=== PATIENT | female | born 1965 | race American Indian/Alaskan Native ===

== ENCOUNTER 2017-01-04 08:51 | Inpatient (IN) | payer MEDICAID, MEDICARE ==
[2017-01-04 08:52] VITALS: BMI 49.1
[2017-01-04 11:21] LABS: SQUAMOUS EPITHIAL 5 /hpf (0-5); URINE BACTERIA RARE (<OCC); URINE BILIRUBIN NEGATIVE (NEGATIVE); URINE BLOOD NEGATIVE (NEGATIVE); URINE CLARITY Hazy (Clear); URINE COLOR Yellow (YELLOW); URINE GLUCOSE (UA) NORMAL (Normal); URINE LEUKOCYTE ESTERASE NEG Leu/uL (Negative); URINE NITRATE NEGATIVE (NEGATIVE); URINE PROTEIN 1+ mg/dL (NEGATIVE); URINE UROBILINOGEN NORMAL mg/dL (0.2-1.0)
[2017-01-04 11:36] LABS: BASO # 0.1 K/uL (0.0-0.2); EOS # 0.1 K/uL (0.0-0.7); EOS % 2.3 % (0.0-4.0); HEMOGLOBIN 12.1 g/dL (11.0-16.0); LYMPH # 1.4 K/uL (1.0-4.3); LYMPH % 23.8 % (20.0-40.0); MEAN CORPUSCULAR HEMOGLOBIN 28.3 pg (27.0-31.0); MEAN CORPUSCULAR HGB CONC 32.9 g/dL (33.0-37.0); MEAN PLATELET VOLUME 10.3 fL (7.2-11.7); MONO # 0.7 K/uL (0.0-0.8); MONO % 11.2 % (0.0-10.0); NEUT # 3.6 K/uL (1.8-7.0); NEUT % 61.7 % (50.0-75.0); RBC 4.29 Mil/uL (3.80-5.20); RED CELL DISTRIBUTION WIDTH 14.7 % (11.5-14.5); WHITE BLOOD COUNT 5.9 K/uL (4.8-10.8)
[2017-01-04] MEDS ORDERED: Morphine 4 MG/ML VIAL ONE ×2 (11:38→13:48)
[2017-01-04 11:47] LABS: PROTHROMBIN TIME 11.8 SECONDS (9.7-12.2)
[2017-01-04 11:54] LABS: ALBUMIN 4.1 g/dL (3.5-5.0)
[2017-01-04 11:56] LABS: GFR AFRICAN-AMERICAN > 60; GFR NON-AFRICAN AMERICAN 58
[2017-01-04 11:57] LABS: ALB/GLOB RATIO 1.2 (1.0-2.1); ALT/SGPT 74 U/L (9-52); AST/SGOT 45 U/L (14-36); BLOOD UREA NITROGEN 8 mg/dL (7-17); LIPASE 30 U/L (23-300)
[2017-01-04 12:06] LABS: CK-MB 0.85 ng/mL (0.0-3.38)
[2017-01-04 12:07] LABS: B-TYPE NATRIURETIC PEPTIDE 140 pg/mL (0-900)
--- NOTE | 2017-01-04 13:19 | C.PDOC ---
Time Seen by Provider: 01/04/17 09:48 Chief Complaint (Nursing): Lower Extremity Problem/Injury Past Medical History Vital Signs: Last Vital Signs Temp 98.0 F 01/04/17 08:54 Pulse 90 01/04/17 08:54 Resp 14 01/04/17 08:54 BP 148/102 H 01/04/17 08:54 Pulse Ox 98 01/04/17 08:54 - Medical History PMH: Arthritis (KNEES), Deep Vein Thrombosis, HTN Denies: Colonic Polyps, Depression, Fractures, Chronic Kidney Disease Surgical History: Endoscopy (20 YEARS AGO), Tonsillectomy - [facility] Procedures INFLUENZA VACCINATION (03/24/12) INJECT/INFUSE NEC (10/16/14) VACCINATION NEC (03/24/12) - Social History Hx Tobacco Use: No Hx Alcohol Use: No Hx Substance Use: No ED Course And Treatment - Laboratory Results Result Diagrams: 01/04/17 11:32 01/04/17 11:32 ECG: Interpreted By Me (Dr Valencia and I), Viewed By Me ECG Rhythm: Sinus Rhythm (85) O2 Sat by Pulse Oximetry: 98 Disposition - Disposition Forms: [facility] (Khmer)
--- NOTE | 2017-01-04 13:24 | C.PDOC ---
History Of Present Illness 51 y/o female, whose PMHx includes gout, presents to the ED for evaluation of left foot pain and swelling. States that her symptoms feel similar to previous time when she had gout. PT had gastric sleeve 8 days ago, and was diagnosed with DVT the following day. Pt is taking Lovenox now. Pt also notes that she has been experiencing "fluttering" in her chest and occassional SOB. Notes that it started yesterday, lasted a few seconds. Pt notes that she thought it was gas, spoke to her gastric surgeon, who told her that she she come to ER. PT also notes that she has some anxiety. h/o Lupus with chest pain, notes this feels different. On liquid diet. Otherwise, denies any extremity weakness/numbness, headache, dizziness, no abdominal pain, n/v or any other associated symptoms at this time. Time Seen by Provider: 01/04/17 09:48 Chief Complaint (Nursing): Lower Extremity Problem/Injury History Per: Patient History/Exam Limitations: no limitations Onset/Duration Of Symptoms: Days Current Symptoms Are (Timing): Still Present Recent travel outside of the [place]: No Additional History Per: Patient Past Medical History Reviewed: Historical Data, Nursing Documentation, Vital Signs Vital Signs: Last Vital Signs Temp 98.1 F 01/05/17 08:20 Pulse 90 01/05/17 08:20 Resp 20 01/05/17 08:20 BP 111/72 01/05/17 10:00 Pulse Ox 95 01/05/17 08:20 - Medical History PMH: Arthritis (KNEES), Deep Vein Thrombosis, HTN Denies: Colonic Polyps, Depression, Fractures, Chronic Kidney Disease Surgical History: Endoscopy (20 YEARS AGO), Tonsillectomy - [facility] Procedures INFLUENZA VACCINATION (03/24/12) INJECT/INFUSE NEC (10/16/14) VACCINATION NEC (03/24/12) Family History: States: Unknown Family Hx - Social History Hx Tobacco Use: No Hx Alcohol Use: No Hx Substance Use: No Review Of Systems Except As Marked, All Systems Reviewed And Found Negative. Constitutional: Negative for: Fever, Chills Cardiovascular: Negative for: Chest Pain, Palpitations Respiratory: Negative for: Cough, Shortness of Breath Gastrointestinal: Negative for: Nausea, Vomiting, Abdominal Pain, Diarrhea, Constipation Musculoskeletal: Positive for: Foot Pain (left) Skin: Positive for: Other (redness and swelling to left foot). Negative for: Lesions Neurological: Negative for: Weakness, Numbness, Headache, Dizziness Physical Exam - Physical Exam Appears: Non-toxic, No Acute Distress Skin: Warm, Dry, Other (erythema to left great toe MTP) Head: Atraumatic, Normacephalic Eye(s): bilateral: Normal Inspection Oral Mucosa: Moist Neck: Normal ROM, Supple Cardiovascular: Rhythm Regular, No Murmur Respiratory: Normal Breath Sounds, No Rales, No Rhonchi, No Wheezing Gastrointestinal/Abdominal: Soft, No Tenderness, No Guarding, No Rebound, Other (5 healed incision to abdomen, no erythema, no discharge, no signs of infection) Back: Normal Inspection Extremity: Normal ROM (FROM of left foot and digits), Tenderness (left great toe MTP ), No Pedal Edema, No Calf Tenderness, Capillary Refill (< 2 sec.), No Deformity, Swelling (left great toe MTP) Pulses: Left Dorsalis Pedis: Normal, Right Dorsalis Pedis: Normal Neurological/Psych: Oriented x3, Normal Speech, Normal Motor, Normal Sensation ED Course And Treatment - Laboratory Results Result Diagrams: 01/05/17 06:36 01/05/17 06:36 ECG: Interpreted By Me (Dr Valencia and I), Viewed By Me ECG Rhythm: Sinus Rhythm (85) O2 Sat by Pulse Oximetry: 98 (RA) Pulse Ox Interpretation: Normal Progress Note: Blood work, urinalysis, EKG, angio chest CT ordered and reviewed. Patient was given Zofran, and Morphine. On re-eval, pt reports feeling better, with improvement of pain. Case discussed with Dr. Pacheco who agrees upon plan and admission. 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 - Scribe Statement The provider has reviewed the documentation as recorded by the Meg Miller All medical record entries made by the Omkaribyaakov were at my direction and personally dictated by me. I have reviewed the chart and agree that the record accurately reflects my personal performance of the history, physical exam, medical decision making, and the department course for this patient. I have also personally directed, reviewed, and agree with the discharge instructions and disposition.
[2017-01-04] MEDS ORDERED: Sodium Chloride 0.9% 1,000 ML ONE (13:48)
[2017-01-04] MEDS ORDERED: Sodium Chloride 0.9% 1,000 ML IV ONE (13:49)
[2017-01-04] MEDS ORDERED: Naproxen 550 mg Tab PO PRN (18:18)
[2017-01-04] MEDS ORDERED: Morphine 4 MG/ML VIAL IV STA (18:33)
[2017-01-04] MEDS ORDERED: Iohexol 350mg/ml 100 ML ONE (20:47)
[2017-01-04 21:11] LABS: CK-MB 0.69 ng/mL (0.0-3.38)
--- NOTE | 2017-01-04 21:51 | CT ---
EXAM: CT Angiography Chest With Intravenous Contrast CLINICAL HISTORY: 51 years old, female; Condition or disease; Lung condition and disease; Pulmonary embolism; Attributes not specified; Patient HX: Gastric sleeve a week ago; Additional info: SOB TECHNIQUE: Axial computed tomographic angiography images of the chest with intravenous contrast using pulmonary embolism protocol. This CT exam was performed using one or more of the following dose reduction techniques: automated exposure control, adjustment of the mA and/or kV according to patient size, and/or use of iterative reconstruction technique. MIP reconstructed images were created and reviewed. Coronal and sagittal reformatted images were created and reviewed. CONTRAST: 100 mL of omnipaque 350 administered intravenously. EXAM DATE/TIME: Exam ordered 01/04/2017 12:02 PM COMPARISON: No relevant prior studies available. FINDINGS: Pulmonary arteries: Unremarkable. No pulmonary embolism. Aorta: No acute findings. No thoracic aortic aneurysm. Lungs: Unremarkable. No mass. No consolidation. Pleural space: Unremarkable. No significant effusion. No pneumothorax. Heart: Unremarkable. No cardiomegaly. No significant pericardial effusion. No evidence of RV dysfunction. Thyroid: A 6 mm nodule is noted in the right lobe of the thyroid. Bones/joints: Degenerative changes are noted of the mid thoracic spine. No acute fracture. No dislocation. Soft tissues: Unremarkable. Lymph nodes: Unremarkable. No enlarged lymph nodes. Stomach and bowel: Surgical changes are noted along the stomach consistent with the history of recent gastric sleeve surgery IMPRESSION: 1. No pulmonary embolism. 2. Postoperative changes related to recent gastric sleeve surgery. 3. 6 mm nodule in the right lobe of the thyroid.
--- NOTE | 2017-01-04 21:53 | CP.PCM.HP ---
<Franky Frausto - Last Filed: 01/04/17 21:43> History of Present Illness - History of Present Illness History of Present Illness: PGY-[address] Lr 51 y/o Female presents to the ED with a CC of L. Foot pain and palpitations. Patient had a Sleeve gastrectomy done last week. 2 days after the procedure she developed a DVT in the L. leg and was started on lovenox. She then started to have L. foot pain that she describes as similar to the pain she has when her gout flares up. Nothing makes the pain better or worse. She describes the pain as tingling and stinging up and down the foot and leg. At its worst, she rates the pain as a 10/10. The pain is constant. This is associated with chills, diaphoresis, SOB during rest and exertion, Palpitations, weakness, dizziness. She denies fever, N/V/cough/hemoptysis, Visual changes, changes in her speech, confusion, RICHARD, abdominal pain. Rash, changes in her urine. She denies sick contacts or recent travel. Present on Admission - Present on Admission Any Indicators Present on Admission: Yes History of DVT/PE: Yes History of Uncontrolled Diabetes: No Urinary Catheter: No Decubitus Ulcer Present: No History Surgical Site Infection Following: Bariatric Surgery (sleeve gastrectomy ) Review of Systems - Constitutional Constitutional: As Per HPI - EENT Eyes: As Per HPI Ears: As Per HPI Nose/Mouth/Throat: As Per HPI - Breasts Breasts: As Per HPI - Cardiovascular Cardiovascular: As Per HPI - Respiratory Respiratory: As Per HPI - Gastrointestinal Gastrointestinal: As Per HPI - Genitourinary Genitourinary: As Per HPI - Reproductive: Female Reproductive:Female: As Per HPI - Menstruation Menstruation: As Per HPI - Musculoskeletal Musculoskeletal: As Per HPI - Integumentary Integumentary: As Per HPI - Neurological Neurological: As Per HPI - Psychiatric Psychiatric: As Per HPI - Endocrine Endocrine: As Per HPI - Hematologic/Lymphatic Hematologic: As Per HPI Past Patient History - Infectious Disease Hx of Infectious Diseases: None - Tetanus Immunizations Tetanus Immunization: Up to Date - Past Medical History & Family History Past Medical History?: Yes - Past Social History Smoking Status: Never Smoked Chewing Tobacco Use: No Cigar Use: No 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 Alcohol: None Drugs: Denies Home Situation {Lives}: With Family - CARDIAC Hx Cardiac Disorders: Yes Hx Heart Attack: No Hx Hypertension: Yes - PULMONARY Hx Respiratory Disorders: Yes Hx Bronchitis: Yes Hx Emphysema: No Hx Lung Cancer: No Hx Pneumonia: No Hx Pulmonary Edema: No Hx Pulmonary Embolism: No Hx Respiratory Tract Infection: Yes (chronic sinusitis) Hx Sleep Apnea: Yes (GAVIN) Other/Comment: SINGULAIR FOR SEASONAL ALLERGIES - NEUROLOGICAL Hx Neurological Disorder: No HX Cerebrovascular Accident: No Hx Syncope: Yes - HEENT Hx HEENT Problems: Yes (dry eye) Hx Sinusitis: Yes - RENAL Hx Chronic Kidney Disease: No - ENDOCRINE/METABOLIC Hx Endocrine Disorders: Yes Hx Diabetes Mellitus Type 1: No Hx Diabetes Mellitus Type 2: No Hx Systemic Lupus Erythematosus: Yes - HEMATOLOGICAL/ONCOLOGICAL Hx Blood Disorders: Yes Hx Blood Transfusions: No Hx Bruising: Yes Hx Cancer: Yes (BONE CHONDROSARCOMA) Hx Chemotherapy: No Other/Comment: s/p stem cell transplant 2005 - INTEGUMENTARY Hx Dermatological Problems: Yes (SLE) Other/Comment: LUPUS FACIAL RASH - MUSCULOSKELETAL/RHEUMATOLOGICAL Hx Musculoskeletal Disorders: Yes Hx Arthritis: Yes (KNEES) Hx Falls: No Hx Fractures: No Hx Gout: Yes (toes) Hx Myasthenia Gravis: No - GASTROINTESTINAL Hx Gastrointestinal Disorders: No - GENITOURINARY/GYNECOLOGICAL Hx Genitourinary Disorders: No - PSYCHIATRIC Hx Psychophysiologic Disorder: No Hx Depression: No Hx Substance Use: No - SURGICAL HISTORY Hx Surgeries: Yes Hx Gastric Bypass Surgery: Yes (sleeve) Hx Musculoskeletal Surgery: Yes (Left lower extremity cancerous bone removal) Hx Tonsillectomy: Yes Other/Comment: Gatric sleeve 12/27/2016 - ANESTHESIA Hx Anesthesia: Yes Hx Anesthesia Reactions: No Hx Malignant Hyperthermia: No Meds Allergies/Adverse Reactions: Allergies Allergy/AdvReac Type Severity Reaction Status Date / Time warfarin Allergy Intermediate URTICARIA Verified 05/03/16 08:04 tape Allergy Mild RASH Uncoded 05/03/16 08:04 ultrasound gel Allergy Mild RASH Uncoded 05/03/16 08:04 Physical Exam - Constitutional Appears: Non-toxic, No Acute Distress - Head Exam Head Exam: ATRAUMATIC, NORMAL INSPECTION, NORMOCEPHALIC - Eye Exam Eye Exam: absent: Conjunctival injection Pupil Exam: NORMAL ACCOMODATION. absent: Fixed, Irregular - ENT Exam ENT Exam: Mucous Membranes Moist, Normal Exam - Respiratory Exam Respiratory Exam: Clear to Auscultation Bilateral. absent: Accessory Muscle Use , Chest Wall Tenderness, Decreased Breath Sounds, Prolonged Expiratory Phase, Rales, Rhonchi, Wheezes, Respiratory Distress, Stridor - Cardiovascular Exam Cardiovascular Exam: REGULAR RHYTHM, RRR. absent: Bradycardia, Tachycardia, Clicks, Diastolic murmur, Gallop, Irregular Rhythm, JVD, Rubs, Systolic Murmur - GI/Abdominal Exam GI & Abdominal Exam: Normal Bowel Sounds, Soft. absent: Bruit, Diminished Bowel Sounds, Distended, Firm, Guarding, Hernia, Hyperactive Bowel Sounds, Hypoactive Bowel Sounds, Mass, Organomegaly, Pulsatile Mass, Rebound, Rigid, Tenderness - Extremities Exam Extremities exam: Positive for: joint swelling, tenderness. Negative for: calf tenderness, full ROM, normal capillary refill, normal inspection, pedal edema, pedal pulses present - Neurological Exam Neurological exam: Alert, Oriented x3 - Psychiatric Exam Psychiatric exam: Normal Affect, Normal Mood Results - Vital Signs Recent Vital Signs: Last Vital Signs Temp 98.5 F 01/04/17 18:15 Pulse 101 H 01/04/17 20:55 Resp 18 01/04/17 19:02 BP 149/92 H 01/04/17 20:55 Pulse Ox 99 01/04/17 18:15 - Labs Result Diagrams: 01/04/17 11:32 01/04/17 11:32 Labs: Laboratory Results - last 24 hr 01/04/17 20:47 Total Creatine Kinase 143 H CK-MB (Mass) 0.69 Troponin I, Quant < 0.0120 Assessment & Plan - Assessment and Plan (Free Text) Assessment: 1. SOB * Pulm consult - Dr. Velásquez - F/U * CTA for PE - F/U * Therapeutic Lovenox 1mg/kg SC Q12H * ABG - F/U * Echo - F/U * Well's Criteria * 9 - high probability of PE * RF - Recent surgery, DVT, SLE, morbidly obese 2. Chest Pain * Cardio consult - Dr. Orozco - F/U * EKG / ARTUR Q6-8H - F/U * first trop negative * EKG - NSR * ProBNP - normal * Nuclear Stress test (09/22/16): EF >55%, normal prior to surgery * Echo - F/U * TSH, HgB A1C, Lipid Panel - F/U 3. Left DVT * Lovenox 150mg SC Q12H * CI: SCDs * Venous doppler (B/L): DVT hx - F/U 4. Left Foot Pain * ESR - F/U * CRP - F/U * [place] - F/U * L. Foot Xray - F/U * Uric Acid - F/U 5. PPX * Protonix 40mg IV QD * Therapeutic Lovenox * CI to SCD 2/2 DVT - Date & Time Date: 01/04/17 Time: 22:28 Decision To Admit - Pt Status Changed To: Hospital Disposition Of: Inpatient - Admit Certification Admit to Inpatient:: After my assessment, the patient will require hospitalization for at least two midnights. This is because of the severity of symptoms shown, intensity of services needed, and/or the medical risk in this patient being treated as an outpatient. - InPatient: Physician Admission Certification:: . - . Bed Request Type: Telemetry <Haley Lr V - Last Filed: 01/05/17 00:10> Results - Vital Signs Recent Vital Signs: Last Vital Signs Temp 98.5 F 01/04/17 18:15 Pulse 101 H 01/04/17 20:55 Resp 18 01/04/17 19:02 BP 149/92 H 01/04/17 20:55 Pulse Ox 99 01/04/17 18:15 - Labs Result Diagrams: 01/04/17 11:32 01/04/17 11:32 Labs: Laboratory Results - last 24 hr 01/04/17 01/04/17 20:47 21:57 Puncture Site Rra pCO2 40 pO2 68 L HCO3 26.5 ABG pH 7.43 ABG Total CO2 27.7 ABG O2 Saturation 98.8 H ABG Base Excess 2.0 ABG Hemoglobin 11.1 L ABG Carboxyhemoglobin 2.2 H POC ABG HHb (Measured) 1.2 ABG Methemoglobin 1.0 Dylan Test Pos A-a O2 Difference 32.0 Respiratory Index 0.5 Hgb O2 Saturation 95.6 FiO2 21.0 Total Creatine Kinase 143 H CK-MB (Mass) 0.69 Troponin I, Quant < 0.0120 Attending/Attestation - Attestation I have personally seen and examined this patient.: Yes I have fully participated in the care of the patient.: Yes I have reviewed all pertinent clinical information: Yes Notes (Text): Patient seen and examined with day-time resident on 01/04/17 at 7:15PM. Patient reports she had flutter and shortness of breathe, and associated anxiety. Patient reports she told her gastric surgeon who recommended her to come to the emergency room for further evaluation. Patient has history of left current DVT, found on doppler during hospitalization for gastric surgery. Patient is on therapeutic dosing of Lovenox (no coumadin, no factor 10a inhibitor) and does not have IVC filter. Patient reports she had gastric bypass surgery about 8 days ago, was going to go for wound check today with her surgeon. Patient reports she has had prior hypercoaguable workup with her heme- onc, Dr Mora in the past. Patient has a history of lupus which reports she was diagnosed late, no renal biopsy. 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 Patient reports she did not take lovenox therapeutic today but usually does. Patient reports she cannot take more than a mushroom size pill of medications per her diet regimen per gastric sleeve procedure and will need medications crushed if bigger. patient advised to bring her protein approved shakes and multivitamin needed for post- operative gastric procedure. Medical hx: SLE, GAVIN, HTN, morbid obesity, Chrondrosarcoma, gout Assessment/Plan 1. Shortness of Breath * Pulm consult - Dr. Velásquez - F/U * CTA for PE - F/U (adequate peripheral line provided by [employer]) * Started on Lovenox 150mg subq12 hours (patient is on this for her current DVT +Left lower extremity) and possible PE * Discussed with pulm, recommended for ABG, echocardiogram * Well's Criteria * 9 - high probability of PE-->Risk Factors - Recent surgery, DVT, SLE, morbidly obese * Etiologies: r/o PE; patient has hx of GAVIN, morbidly obese, and recent bariatric surgery with post-operative changes * CPAP at night setting at 6 * Patient reports she had PFTS prior to her gastric surgery and underwent sleep study prior 2. Chest Pain * Cardio consult - Dr. Orozco - f/u * EKG and ARTUR Q6-8H - F/U X2 * first trop negative (1st) * EKG - NSR (1st) * ProBNP - normal * Nuclear Stress test (09/22/16): EF >55%, normal prior to surgery * Ordered for echocardiogram * TSH, HgB A1C, Lipid Panel in AM - F/U * CT Angio r/o PE 3. Left DVT + * Heme-oncology (Dr. Mora)--on consult * Lovenox 150mg SC Q12H * CI: SCDs * Venous doppler (B/L): DVT hx - F/U * Patient has discharge paperwork from her recent gastric bypass surgery indicating +DVT * Patient reports she has former DVT in right leg * Patient denies IVC filter/no prior hx of DVT. 4. Left Foot Pain * ESR - F/U * CRP - F/U * [place] - F/U * L. Foot Xray - F/U * Uric Acid - F/U 5. PPX * Protonix 40mg IV QD * Therapeutic Lovenox * CI to SCD 2/2 DVT * Note: Patient's pocket builder (Dr. Orozco), pulmonary (Dr. Velásquez), and heme- oncology (Dr. oMra) are the patient's outpatient specialists.
[2017-01-04 22:00] LABS: ABG ALLEN TEST POS; ARTERIAL BLOOD GAS HCO3 26.5 mmol/L (21-28); ARTERIAL BLOOD GAS HEMOGLOBIN 11.1 g/dL (11.7-17.4); ARTERIAL BLOOD GAS O2 SAT 98.8 % (95-98); ARTERIAL BLOOD GAS PCO2 40 mm/Hg (35-45); ARTERIAL BLOOD GAS PH 7.43 (7.35-7.45); ARTERIAL BLOOD GAS PO2 68 mm/Hg (80-100); ARTERIAL BLOOD GAS TCO2 27.7 mmol/L (22-28)
[2017-01-04] MEDS: Enoxaparin 150 mg Syringe SC SCH (22:24)
[2017-01-05 06:47] LABS: BASO % 0.5 % (0.0-2.0); EOS # 0.1 K/uL (0.0-0.7); LYMPH # 1.6 K/uL (1.0-4.3); LYMPH % 27.1 % (20.0-40.0); MEAN CELL VOLUME 86.1 fL (81.0-99.0); MEAN CORPUSCULAR HEMOGLOBIN 28.5 pg (27.0-31.0); MEAN CORPUSCULAR HGB CONC 33.1 g/dL (33.0-37.0); MEAN PLATELET VOLUME 9.9 fL (7.2-11.7); MONO # 0.8 K/uL (0.0-0.8); MONO % 13.5 % (0.0-10.0); NEUT # 3.3 K/uL (1.8-7.0); NEUT % 56.9 % (50.0-75.0); RBC 3.85 Mil/uL (3.80-5.20); RED CELL DISTRIBUTION WIDTH 14.7 % (11.5-14.5); WHITE BLOOD COUNT 5.9 K/uL (4.8-10.8)
[2017-01-05 06:56] LABS: ALB/GLOB RATIO 1.4 (1.0-2.1); ALBUMIN 3.7 g/dL (3.5-5.0); ALT/SGPT 59 U/L (9-52); AST/SGOT 36 U/L (14-36); BLOOD UREA NITROGEN 6 mg/dL (7-17); CALCIUM 8.6 mg/dl (8.6-10.4); GFR AFRICAN-AMERICAN > 60; GFR NON-AFRICAN AMERICAN 58; HDL CHOLESTEROL 50 mg/dL (30-70); URIC ACID 5.7 mg/dL (2.2-7.5)
[2017-01-05 07:01] LABS: INR 1.1; PROTHROMBIN TIME 12.5 SECONDS (9.7-12.2)
[2017-01-05 07:06] LABS: CK-MB 0.53 ng/mL (0.0-3.38)
[2017-01-05 07:07] LABS: LDL CHOLESTEROL 114 mg/dL (0-129)
--- NOTE | 2017-01-05 09:47 | RAD ---
PROCEDURE: Left Foot Radiographs. HISTORY: Foot Pain COMPARISON: None. FINDINGS: BONES: Normal. No fracture. JOINTS: Normal. SOFT TISSUES: Small phleboliths like calcification about the anterior and posterior tibial soft tissues and there is ossification of the insertion of the Achilles tendon at the posterior calcaneus. Dorsal midfoot soft tissue edema suggested. No retained radiodense foreign body grossly evident. Insert before OTHER FINDINGS: None. IMPRESSION: No acute fracture dislocation identified. An element of dorsal soft tissue edema is seen at the midfoot.
[2017-01-05] MEDS: Enoxaparin 150 mg Syringe SC SCH ×2 (10:00→21:31)
[2017-01-05] MEDS ORDERED: PILOCARPINE 5 MG PO SCH (10:00)
[2017-01-05] MEDS ORDERED: RESTASIS OU SCH (10:00)
--- NOTE | 2017-01-05 12:10 | CP.PCM.CON ---
History of Present Illness - History of Present Illness History of Present Illness: Reason for consultation: SOB, hx of DVT, concern for PE Patient is a 51 year old female with past medical history of gout, DVT, GAVIN, SLE , and bone chondrosarcoma, who presented 1 day ago with left foot pain, swelling , and erythema. Patient had gastric sleeve surgery 9 days ago and got a right leg DVT 2 days after the surgery, for which she was put on therapeutic Lovenox. Patient also had associated intermittent SOB at rest and exertion, palpitations , weakness, dizziness, chills, and diaphoresis. Patient denies fever, N/V/D/C, numbness, tingling, chest pain, abdominal pain. Patient also denies recent travel. Patient has Well's criteria score of 9 (with risk factors of obesity, recent surgery, recent DVT, SLE), high risk of PE and anticoagulation indicated. PMHx: gout, arthritis, DVT, HTN, GAVIN, SLE (only on Prednisone; temporarily discontinued Hydroxychloroquine), bone chondrosarcoma (left lower extremity) CTA chest 01/04/17: No pulmonary embolism; 6mm nodule in R. lobe of thyroid Duplex scan LE 01/04/17: pending reading Labs: unremarkable. Patient had prior stress test on 09/22/16 which was normal with EF >55%. Surgical hx: gastric sleeve (9 days ago); tonsillectomy; Endoscopy (20 years ago ) PMH: gout, arthritis, DVT, GAVIN, SLE, bone chondrosarcoma (LLE) Allergies: Warfarin PE: General: AAOX3; NAD Resp: lungs CTA bilaterally; no wheezing, rhonchi, or rales; no accessory muscle use CV: RRR, +S1, +S2; no murmurs, rubs or gallops Past Patient History - Infectious Disease Hx of Infectious Diseases: None - Tetanus Immunizations Tetanus Immunization: Up to Date - Past Medical History & Family History Past Medical History?: Yes - Past Social History Smoking Status: Never Smoked Chewing Tobacco Use: No Cigar Use: No 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 Alcohol: None Drugs: Denies Home Situation {Lives}: With Family - CARDIAC Hx Cardiac Disorders: Yes Hx Hypertension: Yes - PULMONARY Hx Respiratory Disorders: Yes Hx Bronchitis: Yes Hx Emphysema: No Hx Lung Cancer: No Hx Pneumonia: No Hx Pulmonary Edema: No Hx Pulmonary Embolism: No Hx Respiratory Tract Infection: Yes (chronic sinusitis) Hx Sleep Apnea: Yes (GAVIN) Other/Comment: SINGULAIR FOR SEASONAL ALLERGIES - NEUROLOGICAL HX Cerebrovascular Accident: No - HEENT Hx HEENT Problems: Yes (dry eye) Hx Sinusitis: Yes - RENAL Hx Chronic Kidney Disease: No - ENDOCRINE/METABOLIC Hx Diabetes Mellitus Type 1: No Hx Diabetes Mellitus Type 2: No - HEMATOLOGICAL/ONCOLOGICAL Hx Blood Disorders: Yes Hx Blood Transfusions: No Hx Bruising: Yes Hx Cancer: Yes (BONE CHONDROSARCOMA) Hx Chemotherapy: No Other/Comment: s/p stem cell transplant 2006 - INTEGUMENTARY Hx Dermatological Problems: Yes (SLE) Other/Comment: LUPUS FACIAL RASH - MUSCULOSKELETAL/RHEUMATOLOGICAL Hx Arthritis: Yes (KNEES) - GASTROINTESTINAL Hx Gastrointestinal Disorders: No - GENITOURINARY/GYNECOLOGICAL Hx Genitourinary Disorders: No - PSYCHIATRIC Hx Psychophysiologic Disorder: No Hx Depression: No Hx Substance Use: No - SURGICAL HISTORY Hx Surgeries: Yes Hx Gastric Bypass Surgery: Yes (sleeve) Hx Musculoskeletal Surgery: Yes (Left lower extremity cancerous bone removal) Hx Tonsillectomy: Yes Other/Comment: Gatric sleeve 12/27/2016 - ANESTHESIA Hx Anesthesia: Yes Hx Anesthesia Reactions: No Hx Malignant Hyperthermia: No Meds Allergies/Adverse Reactions: Allergies Allergy/AdvReac Type Severity Reaction Status Date / Time warfarin Allergy Intermediate URTICARIA Verified 05/03/16 08:04 tape Allergy Mild RASH Uncoded 05/03/16 08:04 ultrasound gel Allergy Mild RASH Uncoded 05/03/16 08:04 - Medications Medications: Current Medications Colchicine (Colocrys) 0.6 mg PO DAILY [facility] Last Admin: 01/05/17 10:01 Dose: 0.6 mg Enoxaparin Sodium (Lovenox) 150 mg SC Q12 [facility] Last Admin: 01/05/17 10:00 Dose: 150 mg Home Med (Cyclosporine [Restasis]) 2 drop BOTHEYES DAILY [facility] Home Med (Pilocarpine [Salagen Tab]) 5 mg PO BID [facility] Hydrochlorothiazide (Hydrodiuril) 25 mg PO DAILY [facility] Last Admin: 01/05/17 10:01 Dose: 25 mg Losartan Potassium (Cozaar) 100 mg PO DAILY [facility] Last Admin: 01/05/17 10:00 Dose: 100 mg Metoprolol Tartrate (Lopressor) 25 mg PO Q12 [facility] Last Admin: 01/05/17 10:00 Dose: 25 mg Montelukast Sodium (Singulair) 10 mg PO DAILY [facility] Last Admin: 01/05/17 10:01 Dose: 10 mg Morphine Sulfate (Morphine) 2 mg IVP Q4H PRN PRN Reason: Pain, moderate (4-7) Last Admin: 01/05/17 10:01 Dose: 2 mg Pantoprazole Sodium (Protonix Inj) 40 mg IVP DAILY [facility] Last Admin: 01/05/17 09:59 Dose: 40 mg Results - Vital Signs Recent Vital Signs: Last Vital Signs Temp 98.1 F 01/05/17 08:20 Pulse 90 01/05/17 08:20 Resp 20 01/05/17 08:20 BP 111/72 01/05/17 10:00 Pulse Ox 95 01/05/17 08:20 - Labs Result Diagrams: 01/05/17 06:36 01/05/17 06:36 Labs: Laboratory Results - last 24 hr 01/04/17 01/04/17 01/05/17 20:47 21:57 06:36 WBC 5.9 RBC 3.85 Hgb 11.0 Hct 33.2 L MCV 86.1 MCH 28.5 MCHC 33.1 RDW 14.7 H Plt Count 171 MPV 9.9 Neut % (Auto) 56.9 Lymph % (Auto) 27.1 [place] % (Auto) 13.5 H Eos % (Auto) 2.0 Baso % (Auto) 0.5 Neut # 3.3 Lymph # 1.6 [place] # 0.8 Eos # 0.1 Baso # 0.0 ESR PT INR APTT Puncture Site Rra pCO2 40 pO2 68 L HCO3 26.5 ABG pH 7.43 ABG Total CO2 27.7 ABG O2 Saturation 98.8 H ABG Base Excess 2.0 ABG Hemoglobin 11.1 L ABG Carboxyhemoglobin 2.2 H POC ABG HHb (Measured) 1.2 ABG Methemoglobin 1.0 Dylan Test Pos A-a O2 Difference 32.0 Respiratory Index 0.5 Hgb O2 Saturation 95.6 FiO2 21.0 Sodium Potassium Chloride Carbon Dioxide Anion Gap BUN Creatinine Est GFR ( Amer) Est GFR (Non-Af Amer) Random Glucose Hemoglobin A1c Uric Acid Calcium Total Bilirubin AST ALT Alkaline Phosphatase Total Creatine Kinase 143 H CK-MB (Mass) 0.69 Troponin I, Quant < 0.0120 C-React Prot High Sens Total Protein Albumin Globulin Albumin/Globulin Ratio Triglycerides Cholesterol LDL Cholesterol Direct HDL Cholesterol TSH 3rd Generation 01/05/17 01/05/17 01/05/17 06:36 06:36 06:36 WBC RBC Hgb Hct MCV MCH MCHC RDW Plt Count MPV Neut % (Auto) Lymph % (Auto) [place] % (Auto) Eos % (Auto) Baso % (Auto) Neut # Lymph # [place] # Eos # Baso # ESR PT 12.5 H INR 1.1 APTT 36 H D Puncture Site pCO2 pO2 HCO3 ABG pH ABG Total CO2 ABG O2 Saturation ABG Base Excess ABG Hemoglobin ABG Carboxyhemoglobin POC ABG HHb (Measured) ABG Methemoglobin Dylan Test A-a O2 Difference Respiratory Index Hgb O2 Saturation FiO2 Sodium 137 Potassium 3.6 Chloride 98 Carbon Dioxide 28 Anion Gap 15 BUN 6 L Creatinine 1.0 Est GFR ( Amer) > 60 Est GFR (Non-Af Amer) 58 Random Glucose 98 Hemoglobin A1c 6.0 Uric Acid 5.7 Calcium 8.6 Total Bilirubin 0.5 AST 36 ALT 59 H D Alkaline Phosphatase 69 Total Creatine Kinase CK-MB (Mass) Troponin I, Quant C-React Prot High Sens Total Protein 6.3 Albumin 3.7 Globulin 2.7 Albumin/Globulin Ratio 1.4 Triglycerides 72 D Cholesterol 177 LDL Cholesterol Direct 114 HDL Cholesterol 50 TSH 3rd Generation 1.57 01/05/17 01/05/17 06:36 06:36 WBC RBC Hgb Hct MCV MCH MCHC RDW Plt Count MPV Neut % (Auto) Lymph % (Auto) [place] % (Auto) Eos % (Auto) Baso % (Auto) Neut # Lymph # [place] # Eos # Baso # ESR PT INR APTT Puncture Site pCO2 pO2 HCO3 ABG pH ABG Total CO2 ABG O2 Saturation ABG Base Excess ABG Hemoglobin ABG Carboxyhemoglobin POC ABG HHb (Measured) ABG Methemoglobin Dylan Test A-a O2 Difference Respiratory Index Hgb O2 Saturation FiO2 Sodium Potassium Chloride Carbon Dioxide Anion Gap BUN Creatinine Est GFR ( Amer) Est GFR (Non-Af Amer) Random Glucose Hemoglobin A1c Uric Acid Calcium Total Bilirubin AST ALT Alkaline Phosphatase Total Creatine Kinase 148 H CK-MB (Mass) 0.53 Troponin I, Quant < 0.0120 C-React Prot High Sens > 15.00 H Total Protein Albumin Globulin Albumin/Globulin Ratio Triglycerides Cholesterol LDL Cholesterol Direct HDL Cholesterol TSH 3rd Generation
--- NOTE | 2017-01-05 12:49 | CARD ---
APPROVED REPORT EKG Measurement Heart [id number] <Conclusion> Normal sinus rhythm Normal ECG
--- NOTE | 2017-01-05 13:27 | CARD ---
APPROVED REPORT EXAM: Two-dimensional and M-mode echocardiogram with Doppler and color Doppler. Other Information Quality : Technically LimitedRhythm : NSR INDICATION Chest Pain Palpitations RISK FACTORS Hypertension 2D DIMENSIONS IVSd1.2 (0.7-1.1cm)LVDd3.8 (3.9-5.9cm) PWd0.9 (0.7-1.1cm)IVSs1.6 (0.8-1.2cm) LVDs2.9 (2.5-4.0cm)FS (%) 25.5 % PWs1.5 (0.8-1.2cm)LVEF (%)50.9 (>50%) M-Mode DIMENSIONS Left Atrium (MM)4.24 (2.5-4.0cm)Aortic Root3.25 (2.2-3.7cm) Aortic Cusp Exc.1.62 (1.5-2.0cm) Aortic Valve AoV Peak Ottdypfa674.8cm/sAoV VTI20.0cmAO Peak GR.7mmHg AO Mean GR.3mmHg Mitral Valve MV E Wkwnuqpn25.4cm/sMV A Csvrulne34.5cm/sE/A ratio0.6 TDI E/Lateral E'0.0E/Medial E'0.0 Pulmonary Valve PV Peak Wrgaovoi186.9cm/sPV Peak Grad.7mmHg Tricuspid Valve TR Peak Wcoborta909yt/sTR Peak Gr.7qzOvXYSU29dvOt LEFT VENTRICLE Transmitral Doppler flow pattern is Grade I-abnormal relaxation pattern. ATRIA The left atrium is mildly dilated. The right atrium size is normal. AORTIC VALVE No aortic regurgitation is present. There is no aortic valvular stenosis. <Conclusion> The left atrium is mildly dilated. Transmitral Doppler flow pattern is Grade I-abnormal relaxation pattern. TECHNICALLY DIFFICULT STUDY.
--- NOTE | 2017-01-05 14:59 | CON ---
HEMATOLOGY CONSULTATION HISTORY OF PRESENT ILLNESS: This is a 51-year-old woman with a DVT. The patient tells me that I saw her about 5 years ago, she had blood clot, at [facility]. She was put on Coumadin for few months and was discharged, and I did not see her for a couple of years. About 05/2016, she was scoped preoperatively for a gastric sleeve procedure. I saw her at that time and did not find any underlying coagulation problems, and I told them to make sure that she gets Lovenox before the procedure and after. Evidently, she went for the procedure at [facility] one week ago. At that time, she had a gastric sleeve operation but the very next day, she developed pain in her legs and she had a DVT below the knee and was put on Lovenox and discharged. She comes to the hospital now because she started having; 1. Pain in her foot, which was similar to her previous gout pain. 2. She started having shortness of breath. She states she had like waves of shortness of breath and feeling of palpitation. In any event, she went to the hospital. They ruled out a pulmonary embolism on CAT scan, and cardiology has seen her to look for arrhythmia but does not seem to find any. PHYSICAL EXAMINATION: SKIN: No petechia. No bruise. HEENT: Head intact. LYMPHS: Nonpalpable in the axillary, cervical, supraclavicular and inguinal regions. LUNGS: Clear at present. No rhonchi or rales. No wheezing. HEART: S1, S2. No rubs, gallops or murmurs. ABDOMEN: Obese woman, but no tenderness. No organomegaly. EXTREMITIES: No edema. CENTRAL NERVOUS SYSTEM: No focal findings. At this point, she knows to continue her Lovenox b.i.d. She has enough for about a month. She will see me in the office on discharge next week, and when we see her back transition her over to Coumadin something like Eliquis once we see that she is more stable. Kenyon Mora MD
[2017-01-05 17:22] LABS: CK-MB 0.64 ng/mL (0.0-3.38)
[2017-01-05] MEDS: PILOCARPINE 5 MG PO SCH (17:53)
[2017-01-05] MEDS: RESTASIS OU SCH (17:54)
--- NOTE | 2017-01-05 19:23 | CP.PCM.PN ---
Subjective - Date & Time of Evaluation Date of Evaluation: 01/05/17 Time of Evaluation: 16:00 - Subjective Subjective: PGY [address] Aleman Patient seen and examined this morning at bedside. Patient was sitting up in bed. She states that she was awoken up from sleep around 630 due to the fact that she was extremely sob. She states she normally wears CPAP at home and did not have a machine overnight. She currently feels fine and has no complaints. She states she experienced the "fluttering" feeling in her chest multiple times that causes her to become short of breathe but each episode only lasts a second or two. Denies f/c, n/v, d/c, numbness, tingling, visual changes, dizziness or lightheadedness. A call was received from patient's nurse stating that patient's HR became elevated above 120. The patient then became diaphoretic and sob. The episode only lasted less than a minute according to the patient. A new repeat ekg and ARTUR set were ordered. Objective - Vital Signs/Intake and Output Vital Signs (last 24 hours): Temp Pulse Resp BP Pulse Ox 97.9 F 90 20 133/91 H 98 01/05/17 18:02 01/05/17 08:20 01/05/17 08:20 01/05/17 18:02 01/05/17 15:18 Intake and Output: 01/05/17 01/06/17 18:59 06:59 Intake Total 180 Balance 180 - Medications Medications: Current Medications Colchicine (Colocrys) 0.6 mg PO DAILY [facility] Last Admin: 01/05/17 10:01 Dose: 0.6 mg Enoxaparin Sodium (Lovenox) 150 mg SC Q12 [facility] Last Admin: 01/05/17 10:00 Dose: 150 mg Home Med (Patient's Own Drops) 1 drop OU BID [facility] Last Admin: 01/05/17 17:54 Dose: 1 drop Home Med (Patient's Own Medication) 1 tab PO QID [facility] Last Admin: 01/05/17 17:53 Dose: 1 tab Hydrochlorothiazide (Hydrodiuril) 25 mg PO DAILY [facility] Last Admin: 01/05/17 10:01 Dose: 25 mg Losartan Potassium (Cozaar) 100 mg PO DAILY [facility] Last Admin: 01/05/17 10:00 Dose: 100 mg Metoprolol Tartrate (Lopressor) 25 mg PO Q12 [facility] Last Admin: 01/05/17 10:00 Dose: 25 mg Montelukast Sodium (Singulair) 10 mg PO DAILY [facility] Last Admin: 01/05/17 10:01 Dose: 10 mg Morphine Sulfate (Morphine) 2 mg IVP Q4H PRN PRN Reason: Pain, moderate (4-7) Last Admin: 01/05/17 18:03 Dose: 2 mg Pantoprazole Sodium (Protonix Inj) 40 mg IVP DAILY [facility] Last Admin: 01/05/17 09:59 Dose: 40 mg - Labs Labs: 01/05/17 06:36 01/05/17 06:36 PT 12.5 SECONDS (9.7-12.2) H 01/05/17 06:36 INR 1.1 01/05/17 06:36 APTT 36 SECONDS (21-34) H D 01/05/17 06:36 - Constitutional Appears: Non-toxic, No Acute Distress (Patient is obese) - Head Exam Head Exam: ATRAUMATIC, NORMOCEPHALIC - ENT Exam ENT Exam: Mucous Membranes Moist - Respiratory Exam Respiratory Exam: Clear to Ausculation Bilateral, NORMAL BREATHING PATTERN. absent: Accessory Muscle Use, Wheezes, Respiratory Distress - Cardiovascular Exam Cardiovascular Exam: REGULAR RHYTHM, +S1, +S2 - GI/Abdominal Exam GI & Abdominal Exam: Soft, Normal Bowel Sounds. absent: Distended, Firm, Guarding, Rigid, Tenderness - Extremities Exam Extremities Exam: Normal Inspection. absent: Calf Tenderness, Pedal Edema - Neurological Exam Neurological Exam: Alert, Awake, Oriented x3 - Psychiatric Exam Psychiatric exam: Normal Affect, Normal Mood - Skin Skin Exam: Dry, Normal Color, Warm Assessment and Plan - Assessment and Plan (Free Text) Plan: 1. SOB * Pulm consult - Dr. Velásquez * CTA showed no PE * Therapeutic Lovenox 150 SC Q12H * Echo - EF 50.9%, L atrium slightly dilated 2. Chest Pain * Cardio consult - Dr. Orozco * Cardio Electro Consult - Dr. Varghese * EKG / ARTUR Q6-8H - F/U * trop negative x4 * EKG - NSR * ProBNP - normal * Nuclear Stress test (09/22/16): EF >55%, normal prior to surgery * Echo - EF 50.9%, L atrium slightly dilated * TSH 1.57, HgB A1C 6.0, Lipid Panel -HDL 50, LDL 114, Choles. 177, Triglycer. 72 * Continue to monitor for arrhythmia 3. Left DVT * Lovenox 150mg SC Q12H * ContraIn: SCDs * Venous doppler (B/L): DVT hx - F/U 4. Left Foot Pain * CRP - >15 * [place] - negative * L. Foot Xray - No acute fx or dislocation seen. Some edema mid foot seen on image. * Patient has previous hx of GOUT. 5. PPX * Protonix 40mg IV QD * Therapeutic Lovenox * CI to SCD 2/2 DVT
--- NOTE | 2017-01-06 00:11 | CP.PCM.CON ---
History of Present Illness - History of Present Illness History of Present Illness: Patient seen and evaluated Recent stress test normal Normal Troponins ECHO Normal EF Dr. 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 Alcohol: None Drugs: Denies Home Situation {Lives}: With Family - CARDIAC Hx Hypertension: Yes - PULMONARY Hx Respiratory Disorders: Yes Hx Bronchitis: Yes Hx Emphysema: No Hx Lung Cancer: No Hx Pneumonia: No Hx Pulmonary Edema: No Hx Pulmonary Embolism: No Hx Respiratory Tract Infection: Yes (chronic sinusitis) Hx Sleep Apnea: Yes (GAVIN) Other/Comment: SINGULAIR FOR SEASONAL ALLERGIES - NEUROLOGICAL HX Cerebrovascular Accident: No - HEENT Hx HEENT Problems: Yes (dry eye) Hx Sinusitis: Yes - RENAL Hx Chronic Kidney Disease: No - ENDOCRINE/METABOLIC Hx Diabetes Mellitus Type 1: No Hx Diabetes Mellitus Type 2: No - HEMATOLOGICAL/ONCOLOGICAL Hx Blood Disorders: Yes Hx Blood Transfusions: No Hx Bruising: Yes Hx Cancer: Yes (BONE CHONDROSARCOMA) Hx Chemotherapy: No Other/Comment: s/p stem cell transplant 2006 - INTEGUMENTARY Hx Dermatological Problems: Yes (SLE) Other/Comment: LUPUS FACIAL RASH - MUSCULOSKELETAL/RHEUMATOLOGICAL Hx Arthritis: Yes (KNEES) Hx Fractures: No - GASTROINTESTINAL Hx Gastrointestinal Disorders: No - GENITOURINARY/GYNECOLOGICAL Hx Genitourinary Disorders: No - PSYCHIATRIC Hx Depression: No Hx Substance Use: No - SURGICAL HISTORY Hx Tonsillectomy: Yes - ANESTHESIA Hx Anesthesia: Yes Hx Anesthesia Reactions: No Hx Malignant Hyperthermia: No Meds Allergies/Adverse Reactions: Allergies Allergy/AdvReac Type Severity Reaction Status Date / Time warfarin Allergy Intermediate URTICARIA Verified 05/03/16 08:04 tape Allergy Mild RASH Uncoded 05/03/16 08:04 ultrasound gel Allergy Mild RASH Uncoded 05/03/16 08:04 - Medications Medications: Current Medications Colchicine (Colocrys) 0.6 mg PO DAILY [facility] Last Admin: 01/05/17 10:01 Dose: 0.6 mg Enoxaparin Sodium (Lovenox) 150 mg SC Q12 [facility] Last Admin: 01/05/17 21:31 Dose: 150 mg Home Med (Patient's Own Drops) 1 drop OU BID [facility] Last Admin: 01/05/17 17:54 Dose: 1 drop Home Med (Patient's Own Medication) 1 tab PO QID [facility] Last Admin: 01/05/17 17:53 Dose: 1 tab Hydrochlorothiazide (Hydrodiuril) 25 mg PO DAILY [facility] Last Admin: 01/05/17 10:01 Dose: 25 mg Losartan Potassium (Cozaar) 100 mg PO DAILY [facility] Last Admin: 01/05/17 10:00 Dose: 100 mg Metoprolol Tartrate (Lopressor) 25 mg PO Q12 [facility] Last Admin: 01/05/17 21:30 Dose: 25 mg Montelukast Sodium (Singulair) 10 mg PO DAILY [facility] Last Admin: 01/05/17 10:01 Dose: 10 mg Morphine Sulfate (Morphine) 2 mg IVP Q4H PRN PRN Reason: Pain, moderate (4-7) Last Admin: 01/05/17 22:45 Dose: 2 mg Pantoprazole Sodium (Protonix Inj) 40 mg IVP DAILY [facility] Last Admin: 01/05/17 09:59 Dose: 40 mg Results - Vital Signs Recent Vital Signs: Last Vital Signs Temp 97.9 F 01/05/17 18:02 Pulse 92 H 01/05/17 22:44 Resp 20 01/05/17 08:20 BP 122/85 01/05/17 22:44 Pulse Ox 98 01/05/17 15:18 - Labs Result Diagrams: 01/05/17 06:36 01/05/17 06:36 Labs: Laboratory Results - last 24 hr 01/05/17 01/05/17 01/05/17 06:36 06:36 06:36 WBC 5.9 RBC 3.85 Hgb 11.0 Hct 33.2 L MCV 86.1 MCH 28.5 MCHC 33.1 RDW 14.7 H Plt Count 171 MPV 9.9 Neut % (Auto) 56.9 Lymph % (Auto) 27.1 [place] % (Auto) 13.5 H Eos % (Auto) 2.0 Baso % (Auto) 0.5 Neut # 3.3 Lymph # 1.6 [place] # 0.8 Eos # 0.1 Baso # 0.0 ESR PT 12.5 H INR 1.1 APTT 36 H D Sodium 137 Potassium 3.6 Chloride 98 Carbon Dioxide 28 Anion Gap 15 BUN 6 L Creatinine 1.0 Est GFR ( Amer) > 60 Est GFR (Non-Af Amer) 58 Random Glucose 98 Hemoglobin A1c Uric Acid 5.7 Calcium 8.6 Total Bilirubin 0.5 AST 36 ALT 59 H D Alkaline Phosphatase 69 Total Creatine Kinase CK-MB (Mass) Troponin I, Quant C-React Prot High Sens Total Protein 6.3 Albumin 3.7 Globulin 2.7 Albumin/Globulin Ratio 1.4 Triglycerides 72 D Cholesterol 177 LDL Cholesterol Direct 114 HDL Cholesterol 50 TSH 3rd Generation 1.57 [place] 6 Profile 01/05/17 01/05/17 01/05/17 06:36 06:36 06:36 WBC RBC Hgb Hct MCV MCH MCHC RDW Plt Count MPV Neut % (Auto) Lymph % (Auto) [place] % (Auto) Eos % (Auto) Baso % (Auto) Neut # Lymph # [place] # Eos # Baso # ESR PT INR APTT Sodium Potassium Chloride Carbon Dioxide Anion Gap BUN Creatinine Est GFR ( Amer) Est GFR (Non-Af Amer) Random Glucose Hemoglobin A1c 6.0 Uric Acid Calcium Total Bilirubin AST ALT Alkaline Phosphatase Total Creatine Kinase CK-MB (Mass) Troponin I, Quant C-React Prot High Sens > 15.00 H Total Protein Albumin Globulin Albumin/Globulin Ratio Triglycerides Cholesterol LDL Cholesterol Direct HDL Cholesterol TSH 3rd Generation [place] 6 Profile Negative 01/05/17 01/05/17 06:36 16:57 WBC RBC Hgb Hct MCV MCH MCHC RDW Plt Count MPV Neut % (Auto) Lymph % (Auto) [place] % (Auto) Eos % (Auto) Baso % (Auto) Neut # Lymph # [place] # Eos # Baso # ESR PT INR APTT Sodium Potassium Chloride Carbon Dioxide Anion Gap BUN Creatinine Est GFR ( Amer) Est GFR (Non-Af Amer) Random Glucose Hemoglobin A1c Uric Acid Calcium Total Bilirubin AST ALT Alkaline Phosphatase Total Creatine Kinase 148 H 134 CK-MB (Mass) 0.53 0.64 Troponin I, Quant < 0.0120 < 0.0120 C-React Prot High Sens Total Protein Albumin Globulin Albumin/Globulin Ratio Triglycerides Cholesterol LDL Cholesterol Direct HDL Cholesterol TSH 3rd Generation [place] 6 Profile
--- NOTE | 2017-01-06 03:42 | CP.PCM.PN ---
Subjective - Date & Time of Evaluation Date of Evaluation: 01/06/17 Time of Evaluation: 03:39 - Subjective Subjective: PGY-[address] Rai HPI: Patient seen and examined at bedside. Patient has CPAP on 30% 02. Complaining of mild RICHARD. Otherwise doing well with no complaints at this time. Resting comfortably. Denies N/V/D/F/CP/SOB. Objective - Vital Signs/Intake and Output Vital Signs (last 24 hours): Temp Pulse Resp BP Pulse Ox 97.8 F 85 20 120/87 95 01/05/17 23:45 01/06/17 00:00 01/05/17 23:45 01/05/17 23:45 01/05/17 23:45 Intake and Output: 01/05/17 01/06/17 18:59 06:59 Intake Total 180 400 Balance 180 400 - Medications Medications: Current Medications Colchicine (Colocrys) 0.6 mg PO DAILY [facility] Last Admin: 01/05/17 10:01 Dose: 0.6 mg Enoxaparin Sodium (Lovenox) 150 mg SC Q12 [facility] Last Admin: 01/05/17 21:31 Dose: 150 mg Home Med (Patient's Own Drops) 1 drop OU BID [facility] Last Admin: 01/05/17 17:54 Dose: 1 drop Home Med (Patient's Own Medication) 1 tab PO QID [facility] Last Admin: 01/05/17 17:53 Dose: 1 tab Hydrochlorothiazide (Hydrodiuril) 25 mg PO DAILY [facility] Last Admin: 01/05/17 10:01 Dose: 25 mg Losartan Potassium (Cozaar) 100 mg PO DAILY [facility] Last Admin: 01/05/17 10:00 Dose: 100 mg Metoprolol Tartrate (Lopressor) 25 mg PO Q12 [facility] Last Admin: 01/05/17 21:30 Dose: 25 mg Montelukast Sodium (Singulair) 10 mg PO DAILY [facility] Last Admin: 01/05/17 10:01 Dose: 10 mg Morphine Sulfate (Morphine) 2 mg IVP Q4H PRN PRN Reason: Pain, moderate (4-7) Last Admin: 01/05/17 22:45 Dose: 2 mg Pantoprazole Sodium (Protonix Inj) 40 mg IVP DAILY [facility] Last Admin: 01/05/17 09:59 Dose: 40 mg - Labs Labs: 01/05/17 06:36 01/05/17 06:36 PT 12.5 SECONDS (9.7-12.2) H 01/05/17 06:36 INR 1.1 01/05/17 06:36 APTT 36 SECONDS (21-34) H D 01/05/17 06:36 - Constitutional Appears: Well, No Acute Distress - Head Exam Head Exam: ATRAUMATIC, NORMAL INSPECTION, NORMOCEPHALIC - Eye Exam Eye Exam: EOMI, Normal appearance. absent: Conjunctival injection, Periorbital swelling, Periorbital tenderness Pupil Exam: absent: Fixed, Irregular, Miosis, Mydriatic - ENT Exam ENT Exam: Mucous Membranes Moist. absent: Mucous Membranes Dry - Respiratory Exam Respiratory Exam: Clear to Ausculation Bilateral, NORMAL BREATHING PATTERN. absent: Accessory Muscle Use, Chest Wall Tenderness, Decreased Breath Sounds, Prolonged Expiratory Phase, Rales, Rhonchi, Wheezes, Respiratory Distress, Stridor - Cardiovascular Exam Cardiovascular Exam: REGULAR RHYTHM, RRR. absent: Bradycardia, Tachycardia, Clicks, Diastolic murmur, Gallop, Irregular Rhythm, JVD, Rubs, Murmur - GI/Abdominal Exam GI & Abdominal Exam: Soft, Normal Bowel Sounds. absent: Bruit, Distended, Firm , Guarding, Rigid, Tenderness, Diminished Bowel Sounds, Hernia, Hyperactive Bowel Sounds, Hypoactive Bowel Sounds, Mass, Rebound - Extremities Exam Extremities Exam: Joint Swelling (mild. R. great toe), Tenderness - Neurological Exam Neurological Exam: Alert, Awake, Oriented x3 - Psychiatric Exam Psychiatric exam: Normal Affect, Normal Mood - Skin Skin Exam: Dry, Intact, Normal Color, Warm Assessment and Plan - Assessment and Plan (Free Text) Assessment: 1. SOB * Pulm consult - Dr. Velásquez * CTA showed no PE * Therapeutic Lovenox 150 SC Q12H * Echo - EF 50.9%, L atrium slightly dilated 2. Chest Pain * Cardio consult - Dr. Orozco * Cardio Electro Consult - Dr. Varghese * EKG / ARTUR Q6-8H * trop negative x4 * EKG - NSR * ProBNP - normal * Nuclear Stress test (09/22/16): EF >55%, normal prior to surgery * Echo - EF 50.9%, L atrium slightly dilated * TSH 1.57, HgB A1C 6.0, Lipid Panel -HDL 50, LDL 114, Choles. 177, Triglycer. 72 * Continue to monitor for arrhythmia 3. Left DVT * Lovenox 150mg SC Q12H * ContraIn: SCDs * Venous doppler (B/L): DVT hx - F/U 4. Left Foot Pain * CRP - >15 * [place] - negative * L. Foot Xray - No acute fx or dislocation seen. Some edema mid foot seen on image. * Patient has previous hx of GOUT. 5. GAVIN * Respiratory therapy consulted * CPAP ordered for nighttime * 02 30% 5. PPX * Protonix 40mg IV QD * Therapeutic Lovenox * CI to SCD 2/2 DVT
[2017-01-06] MEDS: PILOCARPINE 5 MG PO SCH ×5 (07:34→21:05)
[2017-01-06] MEDS: Morphine 4 MG/ML VIAL IVP PRN ×4 (07:38→22:54)
--- NOTE | 2017-01-06 07:43 | CP.PCM.PN ---
Subjective - Date & Time of Evaluation Date of Evaluation: 01/06/17 Time of Evaluation: 07:43 Objective - Vital Signs/Intake and Output Vital Signs (last 24 hours): Temp Pulse Resp BP Pulse Ox 97.8 F 87 20 120/87 95 01/05/17 23:45 01/06/17 04:05 01/05/17 23:45 01/05/17 23:45 01/05/17 23:45 Intake and Output: 01/06/17 01/06/17 06:59 18:59 Intake Total 400 Balance 400 - Medications Medications: Current Medications Colchicine (Colocrys) 0.6 mg PO DAILY [facility] Last Admin: 01/05/17 10:01 Dose: 0.6 mg Enoxaparin Sodium (Lovenox) 150 mg SC Q12 [facility] Last Admin: 01/05/17 21:31 Dose: 150 mg Home Med (Patient's Own Drops) 1 drop OU BID [facility] Last Admin: 01/05/17 17:54 Dose: 1 drop Home Med (Patient's Own Medication) 1 tab PO QID [facility] Last Admin: 01/06/17 07:34 Dose: Not Given Hydrochlorothiazide (Hydrodiuril) 25 mg PO DAILY [facility] Last Admin: 01/05/17 10:01 Dose: 25 mg Losartan Potassium (Cozaar) 100 mg PO DAILY [facility] Last Admin: 01/05/17 10:00 Dose: 100 mg Metoprolol Tartrate (Lopressor) 25 mg PO Q12 [facility] Last Admin: 01/05/17 21:30 Dose: 25 mg Montelukast Sodium (Singulair) 10 mg PO DAILY [facility] Last Admin: 01/05/17 10:01 Dose: 10 mg Morphine Sulfate (Morphine) 2 mg IVP Q4H PRN PRN Reason: Pain, moderate (4-7) Last Admin: 01/06/17 07:38 Dose: 2 mg Pantoprazole Sodium (Protonix Inj) 40 mg IVP DAILY [facility] Last Admin: 01/05/17 09:59 Dose: 40 mg - Labs Labs: 01/05/17 06:36 01/05/17 06:36 PT 12.5 SECONDS (9.7-12.2) H 01/05/17 06:36 INR 1.1 01/05/17 06:36 APTT 36 SECONDS (21-34) H D 01/05/17 06:36
--- NOTE | 2017-01-06 07:51 | CP.PCM.CON ---
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 [employer] Alcohol: None Drugs: Denies Home Situation {Lives}: With Family - CARDIAC Hx Hypertension: Yes - PULMONARY Hx Respiratory Disorders: Yes Hx Bronchitis: Yes Hx Emphysema: No Hx Lung Cancer: No Hx Pneumonia: No Hx Pulmonary Edema: No Hx Pulmonary Embolism: No Hx Respiratory Tract Infection: Yes (chronic sinusitis) Hx Sleep Apnea: Yes (GAVIN) Other/Comment: SINGULAIR FOR SEASONAL ALLERGIES - NEUROLOGICAL HX Cerebrovascular Accident: No - HEENT Hx HEENT Problems: Yes (dry eye) Hx Sinusitis: Yes - RENAL Hx Chronic Kidney Disease: No - ENDOCRINE/METABOLIC Hx Diabetes Mellitus Type 1: No Hx Diabetes Mellitus Type 2: No - HEMATOLOGICAL/ONCOLOGICAL Hx Blood Disorders: Yes Hx Blood Transfusions: No Hx Bruising: Yes Hx Cancer: Yes (BONE CHONDROSARCOMA) Hx Chemotherapy: No Other/Comment: s/p stem cell transplant 2006 - INTEGUMENTARY Hx Dermatological Problems: Yes (SLE) Other/Comment: LUPUS FACIAL RASH - MUSCULOSKELETAL/RHEUMATOLOGICAL Hx Arthritis: Yes (KNEES) Hx Fractures: No - GASTROINTESTINAL Hx Gastrointestinal Disorders: No - GENITOURINARY/GYNECOLOGICAL Hx Genitourinary Disorders: No - PSYCHIATRIC Hx Depression: No Hx Substance Use: No - SURGICAL HISTORY Hx Tonsillectomy: Yes - ANESTHESIA Hx Anesthesia: Yes Hx Anesthesia Reactions: No Hx Malignant Hyperthermia: No Meds Allergies/Adverse Reactions: Allergies Allergy/AdvReac Type Severity Reaction Status Date / Time warfarin Allergy Intermediate URTICARIA Verified 05/03/16 08:04 tape Allergy Mild RASH Uncoded 05/03/16 08:04 ultrasound gel Allergy Mild RASH Uncoded 05/03/16 08:04 - Medications Medications: Current Medications Colchicine (Colocrys) 0.6 mg PO DAILY [facility] Last Admin: 01/05/17 10:01 Dose: 0.6 mg Enoxaparin Sodium (Lovenox) 150 mg SC Q12 [facility] Last Admin: 01/05/17 21:31 Dose: 150 mg Home Med (Patient's Own Drops) 1 drop OU BID [facility] Last Admin: 01/05/17 17:54 Dose: 1 drop Home Med (Patient's Own Medication) 1 tab PO QID [facility] Last Admin: 01/06/17 07:34 Dose: Not Given Hydrochlorothiazide (Hydrodiuril) 25 mg PO DAILY [facility] Last Admin: 01/05/17 10:01 Dose: 25 mg Losartan Potassium (Cozaar) 100 mg PO DAILY [facility] Last Admin: 01/05/17 10:00 Dose: 100 mg Metoprolol Tartrate (Lopressor) 25 mg PO Q12 [facility] Last Admin: 01/05/17 21:30 Dose: 25 mg Montelukast Sodium (Singulair) 10 mg PO DAILY [facility] Last Admin: 01/05/17 10:01 Dose: 10 mg Morphine Sulfate (Morphine) 2 mg IVP Q4H PRN PRN Reason: Pain, moderate (4-7) Last Admin: 01/06/17 07:38 Dose: 2 mg Pantoprazole Sodium (Protonix Inj) 40 mg IVP DAILY [facility] Last Admin: 01/05/17 09:59 Dose: 40 mg Results - Vital Signs Recent Vital Signs: Last Vital Signs Temp 97.8 F 01/05/17 23:45 Pulse 87 01/06/17 04:05 Resp 20 01/05/17 23:45 BP 120/87 01/05/17 23:45 Pulse Ox 95 01/05/17 23:45 - Labs Result Diagrams: 01/05/17 06:36 01/05/17 06:36 Labs: Laboratory Results - last 24 hr 01/05/17 01/05/17 01/05/17 06:36 06:36 06:36 ESR Total Creatine Kinase CK-MB (Mass) Troponin I, Quant TSH 3rd Generation 1.57 [place] 6 Profile Negative 01/05/17 16:57 ESR Total Creatine Kinase 134 CK-MB (Mass) 0.64 Troponin I, Quant < 0.0120 TSH 3rd Generation [place] 6 Profile
[2017-01-06] MEDS: Enoxaparin 150 mg Syringe SC SCH ×2 (10:00→21:05)
[2017-01-06] MEDS: RESTASIS OU SCH ×2 (10:01→17:13)
--- NOTE | 2017-01-06 18:53 | CP.PCM.PN ---
Objective - Vital Signs/Intake and Output Vital Signs (last 24 hours): Temp Pulse Resp BP Pulse Ox 98 F 83 20 117/81 99 01/06/17 16:00 01/06/17 17:32 01/06/17 16:00 01/06/17 16:00 01/06/17 16:00 Intake and Output: 01/06/17 01/06/17 06:59 18:59 Intake Total 400 120 Output Total 1 Balance 400 119 - Medications Medications: Current Medications Colchicine (Colocrys) 0.6 mg PO DAILY [facility] Last Admin: 01/06/17 10:00 Dose: 0.6 mg Enoxaparin Sodium (Lovenox) 150 mg SC Q12 [facility] Last Admin: 01/06/17 10:00 Dose: 150 mg Home Med (Patient's Own Drops) 1 drop OU BID [facility] Last Admin: 01/06/17 17:13 Dose: 1 drop Home Med (Patient's Own Medication) 1 tab PO QID [facility] Last Admin: 01/06/17 17:12 Dose: 1 tab Hydrochlorothiazide (Hydrodiuril) 25 mg PO DAILY [facility] Last Admin: 01/06/17 10:00 Dose: 25 mg Losartan Potassium (Cozaar) 100 mg PO DAILY [facility] Last Admin: 01/06/17 10:01 Dose: 100 mg Metoprolol Tartrate (Lopressor) 25 mg PO Q12 [facility] Last Admin: 01/06/17 10:00 Dose: 25 mg Montelukast Sodium (Singulair) 10 mg PO DAILY [facility] Last Admin: 01/06/17 10:00 Dose: 10 mg Morphine Sulfate (Morphine) 2 mg IVP Q4H PRN PRN Reason: Pain, moderate (4-7) Last Admin: 01/06/17 18:24 Dose: 2 mg Pantoprazole Sodium (Protonix Inj) 40 mg IVP DAILY [facility] Last Admin: 01/06/17 10:01 Dose: 40 mg - Labs Labs: 01/05/17 06:36 01/05/17 06:36 PT 12.5 SECONDS (9.7-12.2) H 01/05/17 06:36 INR 1.1 01/05/17 06:36 APTT 36 SECONDS (21-34) H D 01/05/17 06:36
[2017-01-07] MEDS: Morphine 4 MG/ML VIAL IVP PRN ×3 (06:51→20:03)
--- NOTE | 2017-01-07 07:25 | CP.PCM.PN ---
Subjective - Date & Time of Evaluation Date of Evaluation: 01/07/17 Time of Evaluation: 07:25 Objective - Vital Signs/Intake and Output Vital Signs (last 24 hours): Temp Pulse Resp BP Pulse Ox 98.2 F 76 20 100/65 96 01/06/17 23:35 01/07/17 03:30 01/06/17 23:35 01/06/17 23:35 01/06/17 23:35 - Medications Medications: Current Medications Colchicine (Colocrys) 0.6 mg PO DAILY [facility] Last Admin: 01/06/17 10:00 Dose: 0.6 mg Enoxaparin Sodium (Lovenox) 150 mg SC Q12 [facility] Last Admin: 01/06/17 21:05 Dose: 150 mg Home Med (Patient's Own Drops) 1 drop OU BID [facility] Last Admin: 01/06/17 17:13 Dose: 1 drop Home Med (Patient's Own Medication) 1 tab PO QID [facility] Last Admin: 01/06/17 21:05 Dose: 1 tab Hydrochlorothiazide (Hydrodiuril) 25 mg PO DAILY [facility] Last Admin: 01/06/17 10:00 Dose: 25 mg Losartan Potassium (Cozaar) 100 mg PO DAILY [facility] Last Admin: 01/06/17 10:01 Dose: 100 mg Metoprolol Tartrate (Lopressor) 25 mg PO Q12 [facility] Last Admin: 01/06/17 21:05 Dose: 25 mg Montelukast Sodium (Singulair) 10 mg PO DAILY [facility] Last Admin: 01/06/17 10:00 Dose: 10 mg Morphine Sulfate (Morphine) 2 mg IVP Q4H PRN PRN Reason: Pain, moderate (4-7) Last Admin: 01/07/17 06:51 Dose: 2 mg Ondansetron HCl (Zofran Tab) 4 mg PO Q6H PRN PRN Reason: Nausea/Vomiting Last Admin: 01/07/17 00:34 Dose: 4 mg Pantoprazole Sodium (Protonix Inj) 40 mg IVP DAILY [facility] Last Admin: 01/06/17 10:01 Dose: 40 mg - Labs Labs: 01/05/17 06:36 01/05/17 06:36 PT 12.5 SECONDS (9.7-12.2) H 01/05/17 06:36 INR 1.1 01/05/17 06:36 APTT 36 SECONDS (21-34) H D 01/05/17 06:36
[2017-01-07] MEDS: Enoxaparin 150 mg Syringe SC SCH ×2 (10:21→21:31)
[2017-01-07] MEDS: PILOCARPINE 5 MG PO SCH ×4 (10:22→21:30)
[2017-01-07] MEDS: RESTASIS OU SCH ×2 (10:37→17:53)
[2017-01-07 12:36] LABS: BASO # 0.1 K/uL (0.0-0.2); BASO % 1.2 % (0.0-2.0); EOS # 0.2 K/uL (0.0-0.7); EOS % 3.3 % (0.0-4.0); HEMOGLOBIN 11.9 g/dL (11.0-16.0); LYMPH # 1.5 K/uL (1.0-4.3); MEAN CELL VOLUME 86.7 fL (81.0-99.0); MEAN CORPUSCULAR HGB CONC 32.3 g/dL (33.0-37.0); MEAN PLATELET VOLUME 10.4 fL (7.2-11.7); MONO # 0.8 K/uL (0.0-0.8); MONO % 15.2 % (0.0-10.0); NEUT # 2.9 K/uL (1.8-7.0); NEUT % 53.3 % (50.0-75.0); RBC 4.27 Mil/uL (3.80-5.20); WHITE BLOOD COUNT 5.5 K/uL (4.8-10.8)
[2017-01-07 13:01] LABS: ALBUMIN 3.8 g/dL (3.5-5.0)
[2017-01-07 13:04] LABS: ALB/GLOB RATIO 1.1 (1.0-2.1)
--- NOTE | 2017-01-07 13:18 | VASCLAB ---
PROCEDURE: Lower Extremity Venous Duplex Exam. HISTORY: DVT PRIORS: None. TECHNIQUE: Bilateral common femoral, femoral, popliteal and posterior tibial, peroneal and great saphenous veins were evaluated. Flow was assessed with color Doppler, compressibility, assessment of phasic flow and augmentation response. Report prepared by TEAGAN Salgado, RVT FINDINGS: RIGHT: 1. Common Femoral Vein: 1.1. Compressibility - Fully compressible: Thrombus - None : Flow - Phasic: Augmentation -Normal: Reflux - None. 2. Femoral Vein: 2.1. Compressibility - Fully compressible: Thrombus - None : Flow - Phasic: Augmentation -Normal: Reflux - None. 3. Popliteal Vein: 3.1. Compressibility - Fully compressible: Thrombus - None : Flow - Phasic: Augmentation -Normal: Reflux - None. 4. Posterior Tibial Vein: 4.1. Compressibility - Fully compressible: Thrombus - None: Flow - Phasic: Augmentation -Normal: Reflux - None. 5. Peroneal Vein: 5.1. Compressibility - Fully compressible: Thrombus - None: Flow - Phasic: Augmentation -Normal: Reflux - None. 6. Great Saphenous Vein: 6.1. Compressibility - Fully compressible: Thrombus - None: Flow - Phasic: Augmentation - Normal: Reflux - None. LEFT: 1. Common Femoral Vein: 1.1. Compressibility - Fully compressible: Thrombus - None: Flow - Phasic: Augmentation -Normal: Reflux - None. 2. Femoral Vein: 2.1. Compressibility - Fully compressible: Thrombus - None: Flow - Phasic: Augmentation -Normal: Reflux - None. 3. Popliteal Vein: 3.1. Compressibility - Fully compressible: Thrombus - None : Flow - Phasic: Augmentation -Normal: Reflux - None. 4. Posterior Tibial Vein: 4.1. Compressibility - Fully compressible: Thrombus - None: Flow - Phasic: Augmentation -Normal: Reflux - None. 5. Peroneal Vein: 5.1. Compressibility - Fully compressible: Thrombus - None: Flow - Phasic: Augmentation -Normal: Reflux - None. 6. Great Saphenous Vein: 6.1. Compressibility - Fully compressible: Thrombus - None: Flow - Phasic: Augmentation - Normal: Reflux - None. OTHER FINDINGS: Right: None significant. Left: None significant. IMPRESSION: Right: No evidence of deep or superficial vein thrombosis of the right lower extremity. Normal valve function noted of the right side. Left: No evidence of deep or superficial vein thrombosis of the left lower extremity. Normal valve function noted of the left side.
--- NOTE | 2017-01-07 13:59 | CP.PCM.DIS ---
Provider - Provider Date of Admission: 01/04/17 20:14 Attending physician: Haley Lr, [facility] Course - Lab Results Lab Results: Most Recent Lab Values WBC 5.5 K/uL (4.8-10.8) 01/07/17 12:19 RBC 4.27 Mil/uL (3.80-5.20) 01/07/17 12:19 Hgb 11.9 g/dL (11.0-16.0) 01/07/17 12:19 Hct 37.0 % (34.0-47.0) 01/07/17 12:19 MCV 86.7 fL (81.0-99.0) 01/07/17 12:19 MCH 28.0 pg (27.0-31.0) 01/07/17 12:19 MCHC 32.3 g/dL (33.0-37.0) L 01/07/17 12:19 RDW 15.0 % (11.5-14.5) H 01/07/17 12:19 Plt Count 193 K/uL (130-400) 01/07/17 12:19 MPV 10.4 fL (7.2-11.7) 01/07/17 12:19 Neut % (Auto) 53.3 % (50.0-75.0) 01/07/17 12:19 Lymph % (Auto) 27.0 % (20.0-40.0) 01/07/17 12:19 [place] % (Auto) 15.2 % (0.0-10.0) H 01/07/17 12:19 Eos % (Auto) 3.3 % (0.0-4.0) 01/07/17 12:19 Baso % (Auto) 1.2 % (0.0-2.0) 01/07/17 12:19 Neut # 2.9 K/uL (1.8-7.0) 01/07/17 12:19 Lymph # 1.5 K/uL (1.0-4.3) 01/07/17 12:19 [place] # 0.8 K/uL (0.0-0.8) 01/07/17 12:19 Eos # 0.2 K/uL (0.0-0.7) 01/07/17 12:19 Baso # 0.1 K/uL (0.0-0.2) 01/07/17 12:19 ESR mm/hr (0-20) 01/05/17 06:36 PT 12.5 SECONDS (9.7-12.2) H 01/05/17 06:36 INR 1.1 01/05/17 06:36 APTT 36 SECONDS (21-34) H D 01/05/17 06:36 Puncture Site Rra 01/04/17 21:57 pCO2 40 mm/Hg (35-45) 01/04/17 21:57 pO2 68 mm/Hg (80-100) L 01/04/17 21:57 HCO3 26.5 mmol/L (21-28) 01/04/17 21:57 ABG pH 7.43 (7.35-7.45) 01/04/17 21:57 ABG Total CO2 27.7 mmol/L (22-28) 01/04/17 21:57 ABG O2 Saturation 98.8 % (95-98) H 01/04/17 21:57 ABG Base Excess 2.0 mmol/L (-2.0-3.0) 01/04/17 21:57 ABG Hemoglobin 11.1 g/dL (11.7-17.4) L 01/04/17 21:57 ABG Carboxyhemoglobin 2.2 % (0.5-1.5) H 01/04/17 21:57 POC ABG HHb (Measured) 1.2 % (0.0-5.0) 01/04/17 21:57 ABG Methemoglobin 1.0 % (0.0-3.0) 01/04/17 21:57 Dylan Test Pos 01/04/17 21:57 A-a O2 Difference 32.0 mm/Hg 01/04/17 21:57 Respiratory Index 0.5 01/04/17 21:57 Hgb O2 Saturation 95.6 % (95.0-98.0) 01/04/17 21:57 FiO2 21.0 % 01/04/17 21:57 Sodium 135 mmol/L (132-148) 01/07/17 12:19 Potassium 3.6 mmol/L (3.6-5.2) 01/07/17 12:19 Chloride 92 mmol/L (98-107) L 01/07/17 12:19 Carbon Dioxide 30 mmol/L (22-30) 01/07/17 12:19 Anion Gap 17 (10-20) 01/07/17 12:19 BUN 10 mg/dL (7-17) 01/07/17 12:19 Creatinine 1.2 MG/DL (0.7-1.2) 01/07/17 12:19 Est GFR ( Amer) 57 01/07/17 12:19 Est GFR (Non-Af Amer) 47 01/07/17 12:19 POC Glucose (mg/dL) 98 mg/dL (65-110) 01/07/17 11:17 Random Glucose 95 mg/dL (65-105) 01/07/17 12:19 Hemoglobin A1c 6.0 % (4.2-6.5) 01/05/17 06:36 Uric Acid 5.7 mg/dL (2.2-7.5) 01/05/17 06:36 Calcium 9.0 mg/dl (8.6-10.4) 01/07/17 12:19 Total Bilirubin 0.7 mg/dL (0.2-1.3) 01/07/17 12:19 AST 34 U/L (14-36) 01/07/17 12:19 ALT 54 U/L (9-52) H 01/07/17 12:19 Alkaline Phosphatase 79 U/L (38-126) 01/07/17 12:19 Total Creatine Kinase 134 U/L (30-135) 01/05/17 16:57 CK-MB (Mass) 0.64 ng/mL (0.0-3.38) 01/05/17 16:57 Troponin I < 0.0120 ng/mL (0.00-0.120) 01/04/17 11:32 Troponin I, Quant < 0.0120 ng/mL (0.00-0.120) 01/05/17 16:57 C-React Prot High Sens > 15.00 mg/L (1.00-3.00) H 01/05/17 06:36 NT-Pro-B Natriuret Pep 140 pg/mL (0-900) 01/04/17 11:32 Total Protein 7.1 g/dL (6.3-8.3) 01/07/17 12:19 Albumin 3.8 g/dL (3.5-5.0) 01/07/17 12:19 Globulin 3.3 gm/dL (2.2-3.9) 01/07/17 12:19 Albumin/Globulin Ratio 1.1 (1.0-2.1) 01/07/17 12:19 Triglycerides 72 mg/dL (0-149) D 01/05/17 06:36 Cholesterol 177 mg/dL (0-199) 01/05/17 06:36 LDL Cholesterol Direct 114 mg/dL (0-129) 01/05/17 06:36 HDL Cholesterol 50 mg/dL (30-70) 01/05/17 06:36 Lipase 30 U/L (23-300) 01/04/17 11:32 TSH 3rd Generation 1.57 mIU/L (0.46-4.68) 01/05/17 06:36 Cortisol AM Sample 13.1 ug/dL (4.46-22.7) 01/07/17 07:17 Urine Color Yellow (YELLOW) 01/04/17 11:06 Urine Clarity Hazy (Clear) 01/04/17 11:06 Urine pH 6.0 (5.0-8.0) 01/04/17 11:06 Ur Specific [place] 1.019 (1.003-1.030) 01/04/17 11:06 Urine Protein 1+ mg/dL (NEGATIVE) H 01/04/17 11:06 Urine Glucose (UA) Normal mg/dL (Normal) 01/04/17 11:06 Urine Ketones Negative mg/dL (NEGATIVE) 01/04/17 11:06 Urine Blood Negative (NEGATIVE) 01/04/17 11:06 Urine Nitrate Negative (NEGATIVE) 01/04/17 11:06 Urine Bilirubin Negative (NEGATIVE) 01/04/17 11:06 Urine Urobilinogen Normal mg/dL (0.2-1.0) 01/04/17 11:06 Ur Leukocyte Esterase Neg [place]/uL (Negative) 01/04/17 11:06 Urine WBC (Auto) 3 /hpf (0-5) 01/04/17 11:06 Urine RBC (Auto) < 1 /hpf (0-3) 01/04/17 11:06 Ur Squamous Epith Cells 5 /hpf (0-5) 01/04/17 11:06 Urine Bacteria Rare (<OCC) 01/04/17 11:06 Hyaline Casts 3-5 /lpf (0-2) H 01/04/17 11:06 [place] 6 Profile Negative (NEGATIVE) 01/05/17 06:36 Discharge Exam - Head Exam Head Exam: ATRAUMATIC, NORMAL INSPECTION, NORMOCEPHALIC Discharge Plan - Follow Up Plan Condition: STABLE Disposition: HOME/ ROUTINE
--- NOTE | 2017-01-07 15:42 | CP.PCM.PN ---
Subjective - Date & Time of Evaluation Date of Evaluation: 01/07/17 Time of Evaluation: 15:00 - Subjective Subjective: PGY1 progress note for Dr. Aleman Patient seen and examined at bedside. Patient is complaining of intermittent episodes of palpitations described as "a flutter." Patient has had an episode of vomiting earlier today. Stat Zofran IV was ordered. Objective - Vital Signs/Intake and Output Vital Signs (last 24 hours): Temp Pulse Resp BP Pulse Ox 98.3 F 91 H 18 101/69 97 01/07/17 08:11 01/07/17 14:49 01/07/17 14:49 01/07/17 14:49 01/07/17 14:49 Intake and Output: 01/07/17 01/07/17 06:59 18:59 Intake Total 200 Balance 200 - Medications Medications: Current Medications Colchicine (Colocrys) 0.6 mg PO DAILY [facility] Last Admin: 01/07/17 10:23 Dose: 0.6 mg Enoxaparin Sodium (Lovenox) 150 mg SC Q12 [facility] Last Admin: 01/07/17 10:21 Dose: 150 mg Home Med (Patient's Own Drops) 1 drop OU BID [facility] Last Admin: 01/07/17 10:37 Dose: 1 drop Home Med (Patient's Own Medication) 1 tab PO QID [facility] Last Admin: 01/07/17 14:53 Dose: Not Given Hydrochlorothiazide (Hydrodiuril) 25 mg PO DAILY [facility] Last Admin: 01/07/17 11:56 Dose: Not Given Losartan Potassium (Cozaar) 100 mg PO DAILY [facility] Last Admin: 01/07/17 11:56 Dose: Not Given Metoprolol Tartrate (Lopressor) 25 mg PO Q12 [facility] Last Admin: 01/07/17 11:56 Dose: Not Given Montelukast Sodium (Singulair) 10 mg PO DAILY [facility] Last Admin: 01/07/17 11:59 Dose: 10 mg Morphine Sulfate (Morphine) 2 mg IVP Q4H PRN PRN Reason: Pain, moderate (4-7) Last Admin: 01/07/17 12:48 Dose: 2 mg Ondansetron HCl (Zofran Odt) 4 mg PO Q6H PRN PRN Reason: Nausea/Vomiting Pantoprazole Sodium (Protonix Inj) 40 mg IVP DAILY [facility] Last Admin: 01/07/17 10:22 Dose: 40 mg - Labs Labs: 01/07/17 12:19 01/07/17 12:19 PT 12.5 SECONDS (9.7-12.2) H 01/05/17 06:36 INR 1.1 01/05/17 06:36 APTT 36 SECONDS (21-34) H D 01/05/17 06:36 - Constitutional Appears: No Acute Distress - Head Exam Head Exam: ATRAUMATIC, NORMAL INSPECTION, NORMOCEPHALIC - Eye Exam Eye Exam: EOMI, PERRL - ENT Exam ENT Exam: Mucous Membranes Moist - Respiratory Exam Respiratory Exam: Clear to Ausculation Bilateral - Cardiovascular Exam Cardiovascular Exam: REGULAR RHYTHM, +S1, +S2 - GI/Abdominal Exam GI & Abdominal Exam: Soft, Normal Bowel Sounds. absent: Tenderness - Extremities Exam Extremities Exam: Joint Swelling (right great toe) - Neurological Exam Neurological Exam: Alert, Awake, Oriented x3 - Skin Skin Exam: Dry, Intact, Normal Color, Warm Assessment and Plan - Assessment and Plan (Free Text) Plan: 1. SOB * Pulm consult - Dr. Velásquez * CTA showed no PE * Therapeutic Lovenox 150 SC Q12H * Echo - EF 50.9%, L atrium slightly dilated 2. Chest Pain * Cardio consult - Dr. Orozco * Cardio Electro Consult - Dr. Varghese * EKG / ARTUR Q6-8H * trop negative x4 * EKG - NSR * ProBNP - normal * Nuclear Stress test (09/22/16): EF >55%, normal prior to surgery * Echo - EF 50.9%, L atrium slightly dilated * TSH 1.57, HgB A1C 6.0, Lipid Panel -HDL 50, LDL 114, Choles. 177, Triglycer. 72 * Continue to monitor for arrhythmia 3. Left DVT * Lovenox 150mg SC Q12H * ContraIn: SCDs * Venous doppler (B/L): DVT hx - F/U 4. Left Foot Pain * CRP - >15 * AUSTIN - negative * L. Foot Xray - No acute fx or dislocation seen. Some edema mid foot seen on image. * Patient has previous hx of GOUT. * Colchicine 0.6 mg PO daily 5. GAVIN * Respiratory therapy consulted * CPAP ordered for nighttime * 02 30% 6. Prophylactic Measure * Protonix 40mg IV QD * Therapeutic Lovenox * CI to SCD 2/2 DVT * Zofran switched to ODT for better tolerance Patient is clear from cardiology perspective. She must follow up as an outpatient. Per PT, patient will need rehab. Patient is pending discharge tomorrow for rehab following insurance authorization. Case discussed with Dr. Love Medellin PGY1
[2017-01-07 16:12] VITALS: RESP 20
--- NOTE | 2017-01-07 21:34 | CP.PCM.PN ---
Subjective - Date & Time of Evaluation Date of Evaluation: 01/07/17 Time of Evaluation: 18:00 - Subjective Subjective: Events noted Patient has episodes of palpitations Objective - Vital Signs/Intake and Output Vital Signs (last 24 hours): Temp Pulse Resp BP Pulse Ox 98.2 F 84 20 103/68 98 01/07/17 15:11 01/07/17 16:00 01/07/17 15:11 01/07/17 15:11 01/07/17 15:11 Intake and Output: 01/07/17 01/08/17 18:59 06:59 Intake Total 200 Balance 200 - Medications Medications: Current Medications Colchicine (Colocrys) 0.6 mg PO DAILY [facility] Last Admin: 01/07/17 10:23 Dose: 0.6 mg Enoxaparin Sodium (Lovenox) 150 mg SC Q12 [facility] Last Admin: 01/07/17 10:21 Dose: 150 mg Home Med (Patient's Own Drops) 1 drop OU BID [facility] Last Admin: 01/07/17 17:53 Dose: 1 drop Home Med (Patient's Own Medication) 1 tab PO QID [facility] Last Admin: 01/07/17 17:55 Dose: 1 tab Hydrochlorothiazide (Hydrodiuril) 25 mg PO DAILY [facility] Last Admin: 01/07/17 11:56 Dose: Not Given Losartan Potassium (Cozaar) 100 mg PO DAILY [facility] Last Admin: 01/07/17 11:56 Dose: Not Given Metoprolol Tartrate (Lopressor) 25 mg PO Q12 [facility] Last Admin: 01/07/17 11:56 Dose: Not Given Montelukast Sodium (Singulair) 10 mg PO DAILY [facility] Last Admin: 01/07/17 11:59 Dose: 10 mg Morphine Sulfate (Morphine) 2 mg IVP Q4H PRN PRN Reason: Pain, moderate (4-7) Last Admin: 01/07/17 20:03 Dose: 2 mg Ondansetron HCl (Zofran Odt) 4 mg PO Q6H PRN PRN Reason: Nausea/Vomiting Last Admin: 01/07/17 20:00 Dose: 4 mg Pantoprazole Sodium (Protonix Inj) 40 mg IVP DAILY [facility] Last Admin: 01/07/17 10:22 Dose: 40 mg - Labs Labs: 01/07/17 12:19 01/07/17 12:19 PT 12.5 SECONDS (9.7-12.2) H 01/05/17 06:36 INR 1.1 01/05/17 06:36 APTT 36 SECONDS (21-34) H D 01/05/17 06:36 - Constitutional Appears: Well - Head Exam Head Exam: ATRAUMATIC - Eye Exam Eye Exam: EOMI, PERRL - ENT Exam ENT Exam: Mucous Membranes Moist - Neck Exam Neck Exam: Full ROM - Respiratory Exam Respiratory Exam: NORMAL BREATHING PATTERN - Cardiovascular Exam Cardiovascular Exam: RRR, +S1, +S2 - GI/Abdominal Exam GI & Abdominal Exam: Soft, Normal Bowel Sounds - Extremities Exam Extremities Exam: Full ROM - Neurological Exam Neurological Exam: Alert, Oriented x3 - Psychiatric Exam Psychiatric exam: Normal Mood - Skin Skin Exam: Warm Assessment and Plan - Assessment and Plan (Free Text) Assessment: Patient with intermittent palpitations Atrial tachyarrhythmias can't be ruled out May need a LINQ monitor prior to discharge Will wait for Dr. Varghese (EP) recommendation
[2017-01-08 08:04] LABS: ALBUMIN 3.8 g/dL (3.5-5.0)
[2017-01-08 08:07] LABS: ALB/GLOB RATIO 1.1 (1.0-2.1)
[2017-01-08 08:08] LABS: CALCIUM 8.8 mg/dl (8.6-10.4)
[2017-01-08 08:14] LABS: BASO # 0.1 K/uL (0.0-0.2); BASO % 1.1 % (0.0-2.0); EOS # 0.1 K/uL (0.0-0.7); EOS % 2.9 % (0.0-4.0); HEMOGLOBIN 11.9 g/dL (11.0-16.0); LYMPH # 1.6 K/uL (1.0-4.3); LYMPH % 30.9 % (20.0-40.0); MEAN CELL VOLUME 86.1 fL (81.0-99.0); MEAN CORPUSCULAR HEMOGLOBIN 28.3 pg (27.0-31.0); MEAN CORPUSCULAR HGB CONC 32.9 g/dL (33.0-37.0); MEAN PLATELET VOLUME 10.3 fL (7.2-11.7); MONO # 0.7 K/uL (0.0-0.8); MONO % 12.9 % (0.0-10.0); NEUT # 2.6 K/uL (1.8-7.0); NEUT % 52.2 % (50.0-75.0); RBC 4.21 Mil/uL (3.80-5.20); RED CELL DISTRIBUTION WIDTH 14.3 % (11.5-14.5)
--- NOTE | 2017-01-08 10:08 | CP.PCM.PN ---
Subjective - Date & Time of Evaluation Date of Evaluation: 01/08/17 Time of Evaluation: 10:05 - Subjective Subjective: Deja Everett, PGY1, Progress Note for Dr. Varghese (cardio): Pt seen and examined at bedside. No acute events overnight. Denies cp, sob, diaphoressi, n/v/diarrhea, abdominal pain, palpitations. Objective - Vital Signs/Intake and Output Vital Signs (last 24 hours): Temp Pulse Resp BP Pulse Ox 98.0 F 85 20 112/75 95 01/08/17 07:35 01/08/17 07:35 01/08/17 07:35 01/08/17 07:35 01/08/17 07:35 Intake and Output: 01/08/17 01/08/17 06:59 18:59 Intake Total 320 Balance 320 - Medications Medications: Current Medications Colchicine (Colocrys) 0.6 mg PO DAILY [facility] Last Admin: 01/07/17 10:23 Dose: 0.6 mg Enoxaparin Sodium (Lovenox) 150 mg SC Q12 [facility] Last Admin: 01/07/17 21:31 Dose: 150 mg Home Med (Patient's Own Drops) 1 drop OU BID [facility] Last Admin: 01/07/17 17:53 Dose: 1 drop Home Med (Patient's Own Medication) 1 tab PO QID [facility] Last Admin: 01/07/17 21:30 Dose: 1 tab Hydrochlorothiazide (Hydrodiuril) 25 mg PO DAILY [facility] Last Admin: 01/07/17 11:56 Dose: Not Given Losartan Potassium (Cozaar) 100 mg PO DAILY [facility] Last Admin: 01/07/17 11:56 Dose: Not Given Metoprolol Tartrate (Lopressor) 25 mg PO Q12 [facility] Last Admin: 01/07/17 21:30 Dose: 25 mg Montelukast Sodium (Singulair) 10 mg PO DAILY [facility] Last Admin: 01/07/17 11:59 Dose: 10 mg Morphine Sulfate (Morphine) 2 mg IVP Q4H PRN PRN Reason: Pain, moderate (4-7) Last Admin: 01/07/17 20:03 Dose: 2 mg Ondansetron HCl (Zofran Odt) 4 mg PO Q6H PRN PRN Reason: Nausea/Vomiting Last Admin: 01/07/17 20:00 Dose: 4 mg Pantoprazole Sodium (Protonix Inj) 40 mg IVP DAILY [facility] Last Admin: 01/07/17 10:22 Dose: 40 mg - Labs Labs: 01/08/17 07:46 01/08/17 07:46 PT 12.5 SECONDS (9.7-12.2) H 01/05/17 06:36 INR 1.1 01/05/17 06:36 APTT 36 SECONDS (21-34) H D 01/05/17 06:36 - Constitutional Appears: No Acute Distress - Head Exam Head Exam: ATRAUMATIC, NORMOCEPHALIC - Eye Exam Eye Exam: PERRL - ENT Exam ENT Exam: Mucous Membranes Moist - Respiratory Exam Respiratory Exam: Clear to Ausculation Bilateral - Cardiovascular Exam Cardiovascular Exam: RRR, +S1, +S2. absent: Murmur - GI/Abdominal Exam GI & Abdominal Exam: Soft, Normal Bowel Sounds. absent: Distended, Tenderness - Extremities Exam Extremities Exam: Joint Swelling. absent: Calf Tenderness, Pedal Edema - Neurological Exam Neurological Exam: Alert, Awake, Oriented x3 - Psychiatric Exam Psychiatric exam: Normal Mood - Skin Skin Exam: Dry, Warm Assessment and Plan - Assessment and Plan (Free Text) Assessment: 51F with PMH HTN, DVT, arthritis, gout, recent sleeve gastrectomy, SLE, bone chondrosarcoma of LLE, admitted for sob, L foot pain, cardiology consulted for palpitations. Plan: Palpitations: - Pt had one episode of palpitations, HR 106, EKG shows HR 85, NSR, otherwise HR 70-80's. - Denies cp, sob, diaphoresis, abdominal pain. - trops negx4, CKMB negx4, probnp nrml - Nuclear Stress test (09/22/16): EF >55%, normal prior to surgery - Echo - EF 50.9%, L atrium slightly dilated - Will sign off. No need for loop recorder is deemed necessary. Discussed with attending, Dr. Varghese.
[2017-01-08] MEDS: PILOCARPINE 5 MG PO SCH ×2 (10:35→13:37)
[2017-01-08] MEDS: Enoxaparin 150 mg Syringe SC SCH (10:44)
[2017-01-08] MEDS: Potassium Chloride 20 mEq ER Tab PO ONE ×2 (10:45→10:49)
[2017-01-08] MEDS: RESTASIS OU SCH (10:50)
[2017-01-08] MEDS ORDERED: Potassium Chloride 20 mEq/15 ml LIQ UD PO ONE (11:10)
--- NOTE | 2017-01-08 11:39 | CP.PCM.DIS ---
Provider - Provider Date of Admission: 01/04/17 20:14 Attending physician: Haley Lr DO Primary care physician: Dr. Mccallum Consults: Dr. Ernesto Velásquez Time Spent in preparation of Discharge (in minutes): 60 Diagnosis - Discharge Diagnosis (1) Palpitations Status: Resolved Priority: Medium (2) DVT (deep venous thrombosis) Status: Chronic Priority: Medium (3) Gout attack Status: Resolved Priority: Medium Hospital Course - Lab Results Lab Results: Most Recent Lab Values WBC 5.0 K/uL (4.8-10.8) 01/08/17 07:46 RBC 4.21 Mil/uL (3.80-5.20) 01/08/17 07:46 Hgb 11.9 g/dL (11.0-16.0) 01/08/17 07:46 Hct 36.2 % (34.0-47.0) 01/08/17 07:46 MCV 86.1 fL (81.0-99.0) 01/08/17 07:46 MCH 28.3 pg (27.0-31.0) 01/08/17 07:46 MCHC 32.9 g/dL (33.0-37.0) L 01/08/17 07:46 RDW 14.3 % (11.5-14.5) 01/08/17 07:46 Plt Count 194 K/uL (130-400) 01/08/17 07:46 MPV 10.3 fL (7.2-11.7) 01/08/17 07:46 Neut % (Auto) 52.2 % (50.0-75.0) 01/08/17 07:46 Lymph % (Auto) 30.9 % (20.0-40.0) 01/08/17 07:46 [place] % (Auto) 12.9 % (0.0-10.0) H 01/08/17 07:46 Eos % (Auto) 2.9 % (0.0-4.0) 01/08/17 07:46 Baso % (Auto) 1.1 % (0.0-2.0) 01/08/17 07:46 Neut # 2.6 K/uL (1.8-7.0) 01/08/17 07:46 Lymph # 1.6 K/uL (1.0-4.3) 01/08/17 07:46 [place] # 0.7 K/uL (0.0-0.8) 01/08/17 07:46 Eos # 0.1 K/uL (0.0-0.7) 01/08/17 07:46 Baso # 0.1 K/uL (0.0-0.2) 01/08/17 07:46 ESR mm/hr (0-20) 01/05/17 06:36 PT 12.5 SECONDS (9.7-12.2) H 01/05/17 06:36 INR 1.1 01/05/17 06:36 APTT 36 SECONDS (21-34) H D 01/05/17 06:36 Puncture Site Rra 01/04/17 21:57 pCO2 40 mm/Hg (35-45) 01/04/17 21:57 pO2 68 mm/Hg (80-100) L 01/04/17 21:57 HCO3 26.5 mmol/L (21-28) 01/04/17 21:57 ABG pH 7.43 (7.35-7.45) 01/04/17 21:57 ABG Total CO2 27.7 mmol/L (22-28) 01/04/17 21:57 ABG O2 Saturation 98.8 % (95-98) H 01/04/17 21:57 ABG Base Excess 2.0 mmol/L (-2.0-3.0) 01/04/17 21:57 ABG Hemoglobin 11.1 g/dL (11.7-17.4) L 01/04/17 21:57 ABG Carboxyhemoglobin 2.2 % (0.5-1.5) H 01/04/17 21:57 POC ABG HHb (Measured) 1.2 % (0.0-5.0) 01/04/17 21:57 ABG Methemoglobin 1.0 % (0.0-3.0) 01/04/17 21:57 Dylan Test Pos 01/04/17 21:57 A-a O2 Difference 32.0 mm/Hg 01/04/17 21:57 Respiratory Index 0.5 01/04/17 21:57 Hgb O2 Saturation 95.6 % (95.0-98.0) 01/04/17 21:57 FiO2 21.0 % 01/04/17 21:57 Sodium 136 mmol/L (132-148) 01/08/17 07:46 Potassium 3.5 mmol/L (3.6-5.2) L 01/08/17 07:46 Chloride 94 mmol/L (98-107) L 01/08/17 07:46 Carbon Dioxide 29 mmol/L (22-30) 01/08/17 07:46 Anion Gap 17 (10-20) 01/08/17 07:46 BUN 12 mg/dL (7-17) 01/08/17 07:46 Creatinine 1.2 MG/DL (0.7-1.2) 01/08/17 07:46 Est GFR ( Amer) 57 01/08/17 07:46 Est GFR (Non-Af Amer) 47 01/08/17 07:46 POC Glucose (mg/dL) 102 mg/dL (65-110) 01/08/17 11:20 Random Glucose 96 mg/dL (65-105) 01/08/17 07:46 Hemoglobin A1c 6.0 % (4.2-6.5) 01/05/17 06:36 Uric Acid 5.7 mg/dL (2.2-7.5) 01/05/17 06:36 Calcium 8.8 mg/dl (8.6-10.4) 01/08/17 07:46 Total Bilirubin 0.3 mg/dL (0.2-1.3) 01/08/17 07:46 AST 38 U/L (14-36) H 01/08/17 07:46 ALT 53 U/L (9-52) H 01/08/17 07:46 Alkaline Phosphatase 80 U/L (38-126) 01/08/17 07:46 Total Creatine Kinase 134 U/L (30-135) 01/05/17 16:57 CK-MB (Mass) 0.64 ng/mL (0.0-3.38) 01/05/17 16:57 Troponin I < 0.0120 ng/mL (0.00-0.120) 01/04/17 11:32 Troponin I, Quant < 0.0120 ng/mL (0.00-0.120) 01/05/17 16:57 C-React Prot High Sens > 15.00 mg/L (1.00-3.00) H 01/05/17 06:36 NT-Pro-B Natriuret Pep 140 pg/mL (0-900) 01/04/17 11:32 Total Protein 7.1 g/dL (6.3-8.3) 01/08/17 07:46 Albumin 3.8 g/dL (3.5-5.0) 01/08/17 07:46 Globulin 3.3 gm/dL (2.2-3.9) 01/08/17 07:46 Albumin/Globulin Ratio 1.1 (1.0-2.1) 01/08/17 07:46 Triglycerides 72 mg/dL (0-149) D 01/05/17 06:36 Cholesterol 177 mg/dL (0-199) 01/05/17 06:36 LDL Cholesterol Direct 114 mg/dL (0-129) 01/05/17 06:36 HDL Cholesterol 50 mg/dL (30-70) 01/05/17 06:36 Lipase 30 U/L (23-300) 01/04/17 11:32 TSH 3rd Generation 1.57 mIU/L (0.46-4.68) 01/05/17 06:36 Cortisol AM Sample 13.1 ug/dL (4.46-22.7) 01/07/17 07:17 Urine Color Yellow (YELLOW) 01/04/17 11:06 Urine Clarity Hazy (Clear) 01/04/17 11:06 Urine pH 6.0 (5.0-8.0) 01/04/17 11:06 Ur Specific [place] 1.019 (1.003-1.030) 01/04/17 11:06 Urine Protein 1+ mg/dL (NEGATIVE) H 01/04/17 11:06 Urine Glucose (UA) Normal mg/dL (Normal) 01/04/17 11:06 Urine Ketones Negative mg/dL (NEGATIVE) 01/04/17 11:06 Urine Blood Negative (NEGATIVE) 01/04/17 11:06 Urine Nitrate Negative (NEGATIVE) 01/04/17 11:06 Urine Bilirubin Negative (NEGATIVE) 01/04/17 11:06 Urine Urobilinogen Normal mg/dL (0.2-1.0) 01/04/17 11:06 Ur Leukocyte Esterase Neg [place]/uL (Negative) 01/04/17 11:06 Urine WBC (Auto) 3 /hpf (0-5) 01/04/17 11:06 Urine RBC (Auto) < 1 /hpf (0-3) 01/04/17 11:06 Ur Squamous Epith Cells 5 /hpf (0-5) 01/04/17 11:06 Urine Bacteria Rare (<OCC) 01/04/17 11:06 Hyaline Casts 3-5 /lpf (0-2) H 01/04/17 11:06 AUSTIN 6 Profile Negative (NEGATIVE) 01/05/17 06:36 - Hospital Course Hospital Course: 51 yo F with PMHx significant for gout, SLE, chrondrosarcoma and HTN, who initially presented to the ED on 01/04 with complaints of left foot pain and palpitations. Patient is s/p gastric sleeve the week prior. 2 days following the procedure, she developed a DVT in the left leg. Lovenox was subsequently started. Patient was doing fine, up until a few days later in which she developed SOB and palpitations. She spoke with her surgeon, who referred her to the ED for further evaluation. Additionally to this, patient began experiencing left foot pain, described to be very similar in nature to her prior gout flares. The pain is described to be "tingling and stinging", with radiation up and down the lower leg. It is constantly there, but severity waxes and wanes, with its worst being a 10/10. Denies any modifying factors. Patient reports associated chills, diaphoresis, generalized weakness and dizziness. She denies signs of fever, n/v, cough, hemoptysis, visual changes, changes in speech, confusion, RICHARD, abdominal pain, rash, urinary changes, sick contacts or recent travels. Hospital Course: Upon arrival to the ED, patient was worked up for both acute PE /DVT and cardiac etiologies. EKG and ECHO were both within normal limits. CT chest showed no evidence of acute PE and lower extremity dopplers were negative for DVT. ROMIs were negative x 3. Cardiology was also consulted, who recommended no intervention at this time. Also during her stay, her gouty flare up was adequately controlled with colchicine. Patient was medically clear and stable for discharge. Instructed to f/u with her PMD for continuity of care and for review of incidental findings on CT. - Date & Time of H&P Date of H&P: 01/04/17 Time of H&P: 21:43 Discharge Exam - Head Exam Head Exam: ATRAUMATIC, NORMAL INSPECTION, NORMOCEPHALIC - Eye Exam Eye Exam: EOMI, Normal appearance. absent: Conjunctival injection, Periorbital swelling, Periorbital tenderness - ENT Exam ENT Exam: Mucous Membranes Moist - Respiratory Exam Respiratory Exam: NORMAL BREATHING PATTERN, UNREMARKABLE. absent: Chest Wall Tenderness - Cardiovascular Exam Cardiovascular Exam: REGULAR RHYTHM, RRR. absent: Diastolic murmur, Gallop, JVD , Rubs, Systolic Murmur - GI/Abdominal Exam GI & Abdominal Exam: Normal Bowel Sounds, Soft. absent: Distended, Firm, Guarding, Organomegaly, Tenderness - Extremities Exam Extremities exam: tenderness (mild tenderness over L. great toe) - Neurological Exam Neurological exam: Alert, Oriented x3 - Psychiatric Exam Psychiatric exam: Normal Affect, Normal Mood - Skin Skin Exam: Dry, Intact, Normal Color, Warm Discharge Plan - Discharge Medications Prescriptions: Colchicine [Colcrys] 0.6 mg PO DAILY #10 Indomethacin [Indocin] 25 mg PO TID #15 cap Metoprolol Tartrate [Lopressor] 25 mg PO Q12 60 Days - Follow Up Plan Condition: STABLE Disposition: HOME/ ROUTINE Patient education suggested?: No Additional Instructions: From Cardiac standpoint, patient is stable for discharge. From pulmonary standpoint, patient is stable for discharge. Patient is medically stable for discharge to TCU. She is to follow up with her primary care Dr. Mccallum in one week. She is to follow up with Dr. Varghese in his office in one week. will need to f/u with Surgeon Dr. Gray at [facility] Will need to f/u with heme to determine length of anticoagulation needed for L. DVT that has resolved per lower extremity doppler on 01/07/17 Pt uses CPAP Fi02 of 30% Medications will be included upon d/c If symptoms return patient is to come to the ER Patient agrees with the plan. Clinical Quality Measures - CQM - Heart Failure Beta-Levy Prescribed: Metoprolol Succinate Will be discharged to: Detention Facility (TCU) - Date & Time of Discharge Summary Date of Discharge Summary: 01/08/17 Time of Discharge Summary: 13:43
--- NOTE | 2017-01-08 11:57 | CP.PCM.PN ---
Subjective - Date & Time of Evaluation Date of Evaluation: 01/08/17 Time of Evaluation: 10:00 - Subjective Subjective: patient seen and exam. complaining of pain left leg Denies shortness of breath Afebrile Objective - Vital Signs/Intake and Output Vital Signs (last 24 hours): Temp Pulse Resp BP Pulse Ox 98.0 F 85 20 112/75 95 01/08/17 07:35 01/08/17 07:35 01/08/17 07:35 01/08/17 10:33 01/08/17 07:35 Intake and Output: 01/08/17 01/08/17 06:59 18:59 Intake Total 320 Balance 320 - Medications Medications: Current Medications Colchicine (Colocrys) 0.6 mg PO DAILY [facility] Last Admin: 01/08/17 10:34 Dose: 0.6 mg Enoxaparin Sodium (Lovenox) 150 mg SC Q12 [facility] Last Admin: 01/08/17 10:44 Dose: 150 mg Home Med (Patient's Own Drops) 1 drop OU BID [facility] Last Admin: 01/08/17 10:50 Dose: 1 drop Home Med (Patient's Own Medication) 1 tab PO QID [facility] Last Admin: 01/08/17 10:35 Dose: 1 tab Hydrochlorothiazide (Hydrodiuril) 25 mg PO DAILY [facility] Last Admin: 01/08/17 10:47 Dose: Not Given Losartan Potassium (Cozaar) 100 mg PO DAILY [facility] Last Admin: 01/08/17 10:33 Dose: 100 mg Metoprolol Tartrate (Lopressor) 25 mg PO Q12 [facility] Last Admin: 01/08/17 10:33 Dose: 25 mg Montelukast Sodium (Singulair) 10 mg PO DAILY [facility] Last Admin: 01/08/17 10:33 Dose: 10 mg Morphine Sulfate (Morphine) 2 mg IVP Q4H PRN PRN Reason: Pain, moderate (4-7) Last Admin: 01/07/17 20:03 Dose: 2 mg Ondansetron HCl (Zofran Odt) 4 mg PO Q6H PRN PRN Reason: Nausea/Vomiting Last Admin: 01/08/17 11:15 Dose: 4 mg Pantoprazole Sodium (Protonix Inj) 40 mg IVP DAILY [facility] Last Admin: 01/08/17 10:32 Dose: 40 mg - Labs Labs: 01/08/17 07:46 01/08/17 07:46 PT 12.5 SECONDS (9.7-12.2) H 01/05/17 06:36 INR 1.1 01/05/17 06:36 APTT 36 SECONDS (21-34) H D 01/05/17 06:36 - Head Exam Head Exam: ATRAUMATIC, NORMOCEPHALIC - Eye Exam Eye Exam: Normal appearance - ENT Exam ENT Exam: Mucous Membranes Moist - Neck Exam Neck Exam: Normal Inspection - Respiratory Exam Respiratory Exam: Clear to Ausculation Bilateral - Cardiovascular Exam Cardiovascular Exam: REGULAR RHYTHM - GI/Abdominal Exam GI & Abdominal Exam: Soft, Normal Bowel Sounds - Extremities Exam Extremities Exam: Pedal Edema Assessment and Plan (1) DVT (deep venous thrombosis) Assessment & Plan: patient with history of pulmonary embolism Recent CT angiogram negative for pulmonary Positive DVT On Lovenox For transfer to rehabilita Status: Chronic
[2017-01-08 15:46] VITALS: TEMP 97.9; O2SAT 98
[2017-01-08 16:24] VITALS: BP 107/73; PULSE 78
[2017-01-08 16:35] LABS: C DIFF TOXIN A B NEGATIVE (NEGATIVE)
[2017-01-08 17:18] LABS: FECAL LEUKOCYTES NEGATIVE (NEGATIVE)
== END 2017-01-08 17:55 | DRG 300 ==
LOC: C.ER 08:51 → C.9E 15:35 → C.5T 16:31 → OBSVTOIN 20:14 → C.6T 01-06 21:52
PROVIDERS: ADMIT Hospitalist; ATTEND Hospitalist
PROC: 5A09457 Assistance with Respiratory Ventilation, 24-96 Consecutive Hours, Continuous Positive Airway Pressure (ICD-10-PCS; principal; 2017-01-06)
DX: I82.402 Acute embolism and thrombosis of unspecified deep veins of left lower extremity (principal); Z94.84 Stem cells transplant status; M32.9 Systemic lupus erythematosus, unspecified; E66.01 Morbid (severe) obesity due to excess calories; M10.9 Gout, unspecified; I10 Essential (primary) hypertension; M17.0 Bilateral primary osteoarthritis of knee; Z98.84 Bariatric surgery status; G47.33 Obstructive sleep apnea (adult) (pediatric); J32.8 Other chronic sinusitis; Z86.711 Personal history of pulmonary embolism; R00.2 Palpitations; Z79.01 Long term (current) use of anticoagulants; Z85.830 Personal history of malignant neoplasm of bone

== ENCOUNTER 2017-06-24 10:32 | Emergency (ER) | payer MEDICARE ==
[2017-06-24 10:32] VITALS: BMI 46.7
[2017-06-24 10:46] VITALS: TEMP 97.9
--- NOTE | 2017-06-24 11:16 | C.PDOC ---
History Of Present Illness 51 year old female with a PMHx of DVT presents to the ED with complaints of left posterior ankle pain and left calf pain for 1 week. Patient was seen by PMD and given medications with some relief. Patient had DVT to left lower extremity and is no longer taking anti-coagulation medication. Patient denies fever, chills, chest pain, shortness of breath, or other complaints at this time. Time Seen by Provider: 06/24/17 10:57 Chief Complaint (Nursing): Lower Extremity Problem/Injury History Per: Patient History/Exam Limitations: no limitations Onset/Duration Of Symptoms: Days (1 week) Current Symptoms Are (Timing): Still Present Recent travel outside of the [place]: No Past Medical History Reviewed: Historical Data, Nursing Documentation, Vital Signs Vital Signs: Last Vital Signs Temp 97.9 F 06/24/17 10:41 Pulse 84 06/24/17 13:08 Resp 16 06/24/17 13:08 BP 121/75 06/24/17 13:08 Pulse Ox 98 06/24/17 13:08 - Medical History PMH: Arthritis (KNEES), Bronchitis, Deep Vein Thrombosis, HTN, Sleep Apnea (GAVIN) Surgical History: Endoscopy (20 YEARS AGO), Tonsillectomy - [facility] ASSISTANCE WITH RESPIRATORY VENTILATION, 24-96 HRS, CPAP (01/04/17) INFLUENZA VACCINATION (03/24/12) INJECT/INFUSE NEC (10/16/14) VACCINATION NEC (03/24/12) Family History: States: Unknown Family Hx - Social History Hx Tobacco Use: No Hx Alcohol Use: No Hx Substance Use: No - Immunization History Hx Tetanus Toxoid Vaccination: No Hx Influenza Vaccination: Yes (02/2017) Hx Pneumococcal Vaccination: Yes (2016) Review Of Systems Constitutional: Negative for: Fever, Chills Cardiovascular: Negative for: Chest Pain, Palpitations Respiratory: Negative for: Cough, Shortness of Breath Musculoskeletal: Positive for: Other (left posterior ankle pain) Neurological: Negative for: Weakness, Numbness Physical Exam - Physical Exam Appears: Non-toxic, No Acute Distress Skin: Warm, Dry, No Rash Head: Atraumatic, Normacephalic, No Tenderness Oral Mucosa: Moist Cardiovascular: Rhythm Regular, No Murmur Respiratory: No Rales, No Rhonchi, No Wheezing, Other (clear to auscultation bilaterally ) Extremity: Normal ROM, Tenderness (left posterior ankle tenderness), No Pedal Edema, Calf Tenderness (mild left calf tenderness), Capillary Refill (<2seconds ), No Deformity, No Swelling Pulses: Left Dorsalis Pedis: Normal, Right Dorsalis Pedis: Normal Neurological/Psych: Oriented x3 ED Course And Treatment O2 Sat by Pulse Oximetry: 96 (RA) Pulse Ox Interpretation: Normal - Other Rad Left Ankle XR X-Ray: Viewed By Me, Read By Radiologist Interpretation: Negative. No acute fractures or dislocations. Progress Note: Venous duplex study and left ankle XR was ordered. Patient was given Toradol. Medical Decision Making Medical Decision Making: ankle pain r/o fracture, sprain, gout, arthritis, tendionpathy- normal rom no clnical concern for infected joint. r/o dvt with h/o of dvt. dvt study neg. xr neg. well appearing, pain improved. normal rom. no erythema. advise close outpt f/u. Disposition - Disposition Referrals: [facility] [Outside] [facility] [Outside] [facility] [Outside] Disposition: HOME/ ROUTINE Disposition Time: 01:00 Condition: STABLE Additional Instructions: please follow up with your doctor/specialist. return to er with worsening symptoms or concerns. Prescriptions: Naproxen [Naprosyn] 500 mg PO BID PRN #14 tablet PRN Reason: Pain, Mild (1-3) Instructions: Ankle Sprain (ED), Arthralgia (ED) Forms: [facility] (Sami) - Clinical Impression Clinical Impression: Ankle pain - Scribe Statement The provider has reviewed the documentation as recorded by the Omkaribyaakov Jamison All medical record entries made by the Omkaribyaakov were at my direction and personally dictated by me. I have reviewed the chart and agree that the record accurately reflects my personal performance of the history, physical exam, medical decision making, and the department course for this patient. I have also personally directed, reviewed, and agree with the discharge instructions and disposition.
--- NOTE | 2017-06-24 11:32 | RAD ---
PROCEDURE: Left Ankle Radiographs. HISTORY: ankle pain COMPARISON: None FINDINGS: BONES: Normal. No fracture. JOINTS: Normal. No osteoarthritis. Ankle mortise maintained. Talar dome intact SOFT TISSUES: Normal. OTHER FINDINGS: None. IMPRESSION: Normal left ankle radiographs.
[2017-06-24 13:09] VITALS: BP 121/75; PULSE 84; RESP 16
[2017-06-24 14:01] VITALS: O2SAT 96
--- NOTE | 2017-06-25 13:16 | VASCLAB ---
PROCEDURE: Left Lower Extremity Venous Duplex Exam. HISTORY: leg pain h/o of dvt PRIORS: None. TECHNIQUE: Left common femoral, femoral, popliteal and posterior tibial, peroneal and great saphenous veins were evaluated. Flow was assessed with color Doppler, compressibility, assessment of phasic flow and augmentation response. Report prepared by CAM Jeong FINDINGS: LEFT: 1. Common Femoral Vein: 1.1. Compressibility - Fully compressible: Thrombus - None : Flow - Phasic: Augmentation -Normal: Reflux - None. 2. Femoral Vein: 2.1. Compressibility - Fully compressible: Thrombus - None: Flow - Phasic: Augmentation -Normal: Reflux - None. 3. Popliteal Vein: 3.1. Compressibility - Fully compressible: Thrombus - None: Flow - Phasic: Augmentation -Normal: Reflux - None. 4. Posterior Tibial Vein: 4.1. Compressibility - Fully compressible: Thrombus - None: Flow - Phasic: Augmentation -Normal: Reflux - None. 5. Peroneal Vein: 5.1. Compressibility - Fully compressible: Thrombus - None: Flow - Phasic: Augmentation -Normal: Reflux - None. 6. Great Saphenous Vein: 6.1. Compressibility - Fully compressible: Thrombus - None: Flow - Phasic: Augmentation - Normal: Reflux - None. OTHER FINDINGS: IMPRESSION: No evidence of deep or superficial vein thrombosis of the left lower extremity with excellent venous flow. Normal valve function noted of the left side. Normal venous flow noted in the right common femoral vein.
== END 2017-06-24 13:08 | disposition home or self-care (01) ==
LOC: C.ER 10:32
DX: M25.572 Pain in left ankle and joints of left foot (principal)